=== PATIENT | female | born 1955 | race Caucasian/White ===

== ENCOUNTER 2024-12-31 10:28 | Emergency (ER) | payer MEDICARE, SELFPAY ==
--- OUTSIDE RECORDS SUMMARY | 2021-04-26 08:45 | XMS_ITS | Continuity of Care Document ---
Author Organization [facility] Address [address] [place] [address] Phone Care Team Providers Care Claims Support Specialist Name Role Phone Harjit ARIZA, Steffen Unavailable Unavailable Allergies, Adverse Reactions, Alerts Substance Reaction Status Criticality No Known Allergies Active No Inform ation Medications Medication Instructions Dosage Effective Dates (start - stop) Status Comments TRAMADOL 50MG TABLETS TAKE 1 TABLET BY MOUTH EVERY 6 HOURS NEEDED FOR PAIN - Active Lyrica 25 mg capsule - Active Prilosec 2.5 mg oral suspension,delay ed release - Active Ambien CR 12.5 mg tablet,extended release - Active VOLTAREN-XR (unknown strength) Not Available - Active Paxil 20 mg tablet - Active [place] 5 mg-325 mg tablet take 1 - 2 by oral route every 4 - 6 hours as needed for pain 1-2 - No Longer Active surgery 04/19/21@[facility] Procedures Procedure Date Global/Postop followup visit Kenalog Triamcinolone acetonide inj Asp/inject major joint or bursa w/o US g uidance Office/outpatient visit,est, mod 2021 Office/outpatient visit,est, mod 2021 MRI lower extrm joint, w/o contrast X-ray exam both knees, standing 022 X-ray exam knee, 1 or 2 views 2 Office/outpatient visit,est, mod 2021 Knee Hinged [facility] Breg X-ray exam shoulder minimum 2 views [place] Arm Sling Global/Postop followup visit X-ray exam shoulder minimum 2 views Office/outpatient visit,est, mod 2019 X-ray exam shoulder minimum 2 views Office/outpatient visit,est, mod 2019 Global/Postop followup visit Global/Postop followup visit [place] Arm Sling Global/Postop followup visit Office/outpatient visit,est, mod 2018 MRI Upper extr joint, w/o contrast Office/outpatient visit,est, mod 2018 X-ray exam shoulder minimum 2 views Office/outpatient visit,est, low 2018 Fluoroscopic Guidance; Non Spinal Office/outpatient visit,est, mod 2018 X-ray exam elbow, 3+ views Office/outpatient visit,est, low 2018 Global/Postop followup visit Global/Postop followup visit X-ray exam shoulder minimum 2 views X-ray exam shoulder minimum 2 views Global/Postop followup visit Catalino Sling With Waist Strap, Off The She lf Office/outpatient visit,est, low 2018 X-ray exam shoulder minimum 2 views Global/Postop followup visit Global/Postop followup visit X-ray exam shoulder minimum 2 views Global/Postop followup visit X-ray exam humerus, minimum 2 views Global/Postop followup visit X-ray exam humerus, minimum 2 views Global/Postop followup visit X-ray exam shoulder minimum 2 views Office/outpatient visit,est, low 2018 X-ray exam shoulder minimum 2 views Office/outpatient visit,est, mod 2018 X-ray exam ankle, minimum 3 views X-ray exam shoulder minimum 2 views Ankle Stirrip - Breg Office/outpatient visit,est, mod 2018 X-ray exam shoulder minimum 2 views X-ray exam ankle, minimum 3 views Office/outpatient visit,est, mod 2017 X-ray exam shoulder minimum 2 views [place] Sling With Waist Strap, Off The She lf Office/outpatient visit,new, mod 2017 Office/outpatient visit,est, low 2017 X-ray exam ankle, minimum 3 views Office/outpatient visit,est, mod 2017 [facility] Hinged Knee Sleeve Breg X-ray exam wrist, complete, 3+ views Aug Office/outpatient visit,est, mod 2017 X-ray exam wrist, complete, 3+ views Aug Office/outpatient visit,est, mod 2017 X-ray exam wrist, complete, 3+ views Jul Office/outpatient visit,est, mod 2017 X-ray exam hand, 2 views Upper ext fx orthosis wrist Thumb Spiica Office/outpatient visit,new, mod 2017 Advance Directives Directive Yes / No Effective Date File Name No Information Encounters Encounter Description Practice Location Reason(s) For Visit Diagnoses Date Provider Providers Copied on Encounter [facility], [address], [id number], [place] tel:[phone] [facility] Left knee (chief complaint) Oth meniscus derang, post horn of medial meniscus, l knee 2 Harjit Bourne. [address] [facility], [address], [place], [place], [id number], [place]. tel:[phone] Referring Provider: Steffen Kuo, [address] [address], [place], [address] . tel:[phone] [facility], [address] [address], [place], [place], [id number], [place] tel:[phone] [facility] No Information 2 Harjitsuzanne Bourne. [address] [address], [place], [place], [id number], [place]. tel:[phone] [facility], [address] [address], [place], [place], [address], [place] tel:[phone] [facility] No Information 2 Ricardo Yadav. [address], [id number], [place]. tel:[phone] Office/outpa tient visit,[facility], [address] [place] [address], [id number], [place] tel:[phone] [facility] left knee (chief complaint) Nondisplaced fracture of lateral condyle of left tibia, subsequent encounter for closed fracture w/ routine healingOth meniscus derang, post horn of medial meniscus, l kneeOth enthesopathies of unspecified lower limb, excluding foot 2 Ricardo Yadav. [address] [place] [address], [id number], [place]. tel:[phone] Office/outpa tient visit,est, [facility], [address], [id number], [place] tel:[phone] [facility] left knee (chief complaint) Pain in left kneeOth meniscus derang, post horn of medial meniscus, l kneeNondisplaced fracture of lateral condyle of left tibia, initial encounter for closed fracture 2 Ricardo Yadav. [address], [id number], [place]. tel:[phone] [facility], [address], [place], [address], [place] tel:[phone] [facility] Pain in left knee 2 [facility]. [address] [facility], [address], [place], [place], [id number], [place]. tel:[phone] Referring Provider: Steffen Kuo, [address] [facility] [address], [place], [address] . tel:[phone] Office/outpa tient visit,est, [facility], [address] [facility] [address], [place], [place], [id number], [place] tel:[phone] [facility] left knee pain (chief complaint) Pain in left knee 2 Ricardo Yadav. [address] [facility], [facility] [address], [place], [place], [id number], [place]. tel:[phone] Referring Provider: Steffen Kuo, [address] [facility] [address], [place], [address] . tel:[phone] [facility], [address] [address], [place], [place], [id number], [place] tel:[phone] [facility] Right shoulder (chief complaint) Presence of right artificial shoulder joint 0 Harjit Bourne. [address] [facility], [address], [place], [place], [id number], [place]. tel:[phone] Office/outpa tient visit,est, [facility], [address] [facility] [address], [place], [place], [address], [place] tel:[phone] [facility] Right shoulder (chief complaint) Presence of right artificial shoulder joint 0 Harjit Bourne. [address] [facility], [address], [place], [place], [id number], [place]. tel:[phone] Office/outpa tient visit,est, [facility], [address], [id number], [place] tel:[phone] [facility] right shoulder (chief complaint) Fracture of shaft of humerus of right arm, subsequent encounter for fracture w/ nonunionUnsp fx shaft of humer, right arm, subs for fx w routn healPresence of right artificial shoulder joint May-0 0 Harjit Bourne. [address] [facility], [address] [address], [place], [place], [id number], [place]. tel:[phone] [facility], [address] [address], [place], [place], [id number], [place] tel:[phone] [facility] elbow (chief complaint) Unsp fx shaft of humer, right arm, subs for fx w routn heal Apr- 0- 0 Azalea Tamayo. [address] [facility], [address], [id number], [place]. tel:[phone] [facility], [address], [id number], [place] tel:[phone] [facility] Lateral epicondylitis, right elbow 0 Azalea Tamayo. [address], [id number], [place]. tel:[phone] [facility], [address], [id number], [place] tel:[phone] [facility] Loose body in right elbow 0 Azalea Tamayo. [address] [facility], [address] [address], [place], [place], [address], [place]. tel:[phone] [facility], [address], [id number], [place] tel:[phone] [facility] RIGHT ELBOW (chief complaint) Lateral epicondylitis, right elbow 0 Azalea Tamayo. [address] [facility], [address], [id number], [place]. tel:[phone] Office/outpa tient visit,est, mod [facility], [address] [facility] [address], [place], [place], [id number], [place] tel:[phone] [facility] right elbow (chief complaint) Other sprain of left elbow, initial encounterLoose body in right elbowFracture of scaphoid bone of right wrist, initial encounter for closed fracture 9 Azalea Tamayo. [address] [facility], [address], [place], [place], [address], [place]. tel:[phone] [facility], [address] [facility] [address], [place], [place], [address], [place] tel:[phone] [facility] Pain in right elbow Jan-0 9 [facility]. [address] [facility], [address], [place], [place], [address], [place]. tel:[phone] Referring Provider: Roni Roldan, [address] [facility] [address], [place], [address] . tel:[phone] Office/outpa tient visit,est, [facility], [address] [facility] [address], [place], [place], [id number], [place] tel:[phone] [facility] Pain in right elbow Jan-0 9 Azalea Tamayo. [address] [facility], [address], [place], [place], [address], [place]. tel:[phone] Office/outpa tient visit,est, [facility], [address] [facility] [address], [place], [place], [address], [place] tel:[phone] [facility] Right shoulder (chief complaint) Fracture of shaft of humerus of right arm, subsequent encounter for fracture w/ nonunion 9 Harjit Bourne. [address] [facility], [address], [place], [place], [address], [place]. tel:[phone] Office/outpa tient visit,est, [facility], [address] [facility] [address], [place], [place], [address], [place] tel:[phone] [facility] Pain in right elbowOther sprain of left elbow, initial encounter 9 Tristan Roni. [address] [facility], [address] [address], [place], [place], [address], [place]. tel:[phone] Office/outpa tient visit,est, low [facility], [address] [address], [place], [place], [id number], [place] tel:[phone] [facility] right elbow pain (chief complaint) Pain in right elbow 9 Ricardo Yadav. [address] [address], [place], [place], [id number], [place]. tel:[phone] [facility], [address] [address], [place], [place], [address], [place] tel:[phone] [facility] Right shoulder (chief complaint) Unsp fx shaft of humer, right arm, subs for fx w routn heal 9 Harjittha Bourne. [address] [facility], [address] [address], [place], [place], [address], [place]. tel:[phone] [facility], [address] [address], [place], [place], [address], [place] tel:[phone] [facility] Right shoulder (chief complaint) Fracture of shaft of humerus of right arm, subsequent encounter for fracture w/ nonunion 9 Harjit Bourne. [address] [facility], [address] [address], [place], [place], [address], [place]. tel:[phone] [facility], [address] [address], [place], [place], [id number], [place] tel:[phone] [facility] Right shoulder (chief complaint) Fracture of shaft of humerus of right arm, subsequent encounter for fracture w/ nonunion 9 Harjit Bourne. [address] [facility], [address] [address], [place], [place], [address], [place]. tel:[phone] [facility], [address] [address], [place], [place], [address], [place] tel:[phone] [facility] Fracture of shaft of humerus of right arm, subsequent encounter for fracture w/ nonunion 9 Viktor Harp. [address] [facility], [address] [address], [place], [place], [address], [place]. tel:[phone] [facility], [address] [address], [place], [place], [address], [place] tel:[phone] [facility] Fracture of shaft of humerus of right arm, subsequent encounter for fracture w/ nonunion 9 Harjit Bourne. [address] [facility], [address] [address], [place], [place], [address], [place]. tel:[phone] Office/outpa tient visit,est, low [facility], [address] [address], [place], [place], [address], [place] tel:[phone] [facility] right shoulder (chief complaint) Unsp fx shaft of humer, right arm, subs for fx w routn heal 9 Harjit Bourne. [address] [facility], [address] [address], [place], [place], [address], [place]. tel:[phone] [facility], [address] [address], [place], [place], [address], [place] tel:[phone] [facility] right shoulder (chief complaint) Fracture of shaft of humerus of right arm, subsequent encounter for fracture w/ routine healing 9 Ricardo Yadav. [address] [facility], [address] [address], [place], [place], [address], [place]. tel:[phone] [facility], [address], [id number], [place] tel:[phone] [facility] right shoulder (chief complaint) Fracture of shaft of humerus of right arm, subsequent encounter for fracture w/ routine healing May-0 8- 9 Harjit Bourne. [address] [facility], [address] [address], [place], [place], [address], [place]. tel:[phone] [facility], [address] [address], [place], [place], [address], [place] tel:[phone] [facility] right shoulder (chief complaint) Fracture of shaft of humerus of right arm, subsequent encounter for fracture w/ routine healing May-2 4-201 9 Ricardo Yadav. [address] [facility], [facility] [address], [place], [place], [address], [place]. tel:[phone] [facility], [address], [id number], [place] tel:[phone] [facility] Right Shoulder (chief complaint) Fracture of shaft of humerus of right arm, subsequent encounter for fracture w/ routine healing May-1 0- 9 Harjit Bourne. [address] [facility], [address] [address], [place], [place], [address], [place]. tel:[phone] [facility], [address] [address], [place], [place], [address], [place] tel:[phone] [facility] Right humerus (chief complaint) Fracture of shaft of humerus of right arm, subsequent encounter for fracture w/ routine healing Apr-2 0- 9 Harjit Bourne. [address] [facility], [address] [address], [place], [place], [address], [place]. tel:[phone] Office/outpa tient visit,est, low [facility], [address] [address], [place], [place], [address], [place] tel:[phone] [facility] Right Shoulder (chief complaint) Fracture of shaft of humerus of right arm, subsequent encounter for fracture w/ routine healingFracture of shaft of humerus of right arm, subsequent encounter for fracture w/ nonunion Apr-0 6-201 9 Harjit Bourne. [address] [facility], [address] [address], [place], [place], [address], [place]. tel:[phone] [facility], [address], [id number], [place] tel:[phone] [facility] Right humerus (chief complaint) Right ankle (chief complaint) Sprain of internal collateral ligament of right ankle, subsequent encounterFractur e of shaft of humerus of right arm, subsequent encounter for fracture w/ routine healing 9 Harjit Bourne. [address] [place] [address], [id number], [place]. tel:[phone] Office/outpa tient visit,est, [facility], [address], [id number], [place] tel:[phone] [facility] right shoulder (chief complaint) Fracture of shaft of humerus of right arm, subsequent encounter for fracture w/ routine healing 9 Ricardo Yadav. [address] [place] [address], [id number], [place]. tel:[phone] Office/outpa tient visit,est, [facility], [facility] [address], [id number], [place] tel:[phone] [facility] Right Humerus (chief complaint) Right Ankle (chief complaint) Fracture of shaft of humerus of right arm, subsequent encounter for fracture w/ routine healingSprain of internal collateral ligament of right ankle, subsequent encounterNondisp fx of lateral malleolus of l fibula, 7thD 9 Harjit Bourne. [address] [facility], [facility] [address], [place], [address], [place]. tel:[phone] Office/outpa tient visit,est, [facility], [address] [place] [address], [id number], [place] tel:[phone] [facility] Right humerus (chief complaint) Right ankle (chief complaint) Fracture of shaft of humerus of right arm, subsequent encounter for fracture w/ routine healingSprain of internal collateral ligament of right ankle, subsequent encounter 8 Harjit Bourne. [address] [facility], [address], [place], [place], [address], [place]. tel:[phone] Office/outpa tient visit,[facility], [facility], [address] [facility] [address], [place], [place], [address], [place] tel:[phone] [facility] Right Humerus (chief complaint) Pain in right shoulderFracture of shaft of humerus of right arm, initial encounter for open fractureNondisp fx of lateral malleolus of l fibula, 7thD 8 Harjit Bourne. [address] [facility], [address] [address], [place], [place], [address], [place]. tel:[phone] Office/outpa tient visit,[facility], [facility], [address], [id number], [place] tel:[phone] [facility] left ankle (chief complaint) Sprain of other ligament of left ankle, subsequent encounter 8 Ricardo Yadav. [address] [facility], [address], [place], [place], [address], [place]. tel:[phone] Office/outpa tient visit,[facility], [facility], [address] [address], [place], [place], [address], [place] tel:[phone] [facility] left ankle pain (chief complaint) Pain in left ankle and joints of left footSprain of other ligament of left ankle, initial encounter 8 Ricardo Yadav. [address] [facility], [address], [place], [place], [address], [place]. tel:[phone] Office/outpa tient visit,[facility], [address], [id number], [place] tel:[phone] [facility] right wrist (chief complaint) Fracture of navicular bone of right wrist, subsequent encounter for fracture w/ routine healing 8 Ricardo Yadav. [address] [facility], [facility] 100, [place], [place], [address], [place]. tel:[phone] Office/outpa tient visit,[facility], [facility], [address] [facility] [address], [place], [place], [address], [place] tel:[phone] [facility] right wrist (chief complaint) Fracture of navicular bone of right wrist, subsequent encounter for fracture w/ routine healing Ricardo Yadav. [address] [facility], [facility] 100, [place], [place], [address], [place]. tel:[phone] Office/outpa tient visit,[facility], [facility], [address] [facility] [address], [place], [place], [address], [place] tel:[phone] [facility] right wrist (chief complaint) Fracture of navicular bone of right wrist, subsequent encounter for fracture w/ routine healing 8 Ricardo Yadav. [address] [facility], [facility] 100, [place], [place], [address], [place]. tel:[phone] Office/outpa tient visit,[facility], [address] [facility] [address], [place], [place], [address], [place] tel:[phone] [facility] right wrist pain (chief complaint) Pain in right handFracture of scaphoid bone of right wrist, initial encounter for closed fracture Ricardo Yadav. [address] [facility], [facility] 100, [place], [place], [address], [place]. tel:[phone] Family History Family Member Type Diagnosis Age At Onset Mother Problem (finding) Stroke Sister Problem (finding) Heart Disease Mother Problem (finding) Osteoarthritis Mother Problem (finding) Heart Disease Father Problem (finding) Heart Disease Father Problem (finding) Diabetes Father Problem (finding) Hypertension Payers Payer name Insurance type Covered green party ID Geea joe(s) Mounika Lugo [id number] Social History Type Description Quantity Date Captured Comments Alcohol Use Details Unknown Caffeine Use Details Unknown Tobacco Use Status Current non-smoker Smoking Status Never smoker Non-Smoking Tobacco Use Details : No Details Available : No Details Available Sex Female Vital Signs Date / Time: Height Weight BMI Pulse Rate Blood Pressure Temperature Respiratory Rate Body Surface Area Head Circumference Head Circ. Percentile Wt./Rex. Percentile BMI percentile Pulse Ox Inhaled Ox 3:17 PM 67.00 in 63.957 kg (141.00 lbs) 22.0 8 kg/m eter (2) Chief Complaint And Reason For Visit From encounter dated '04/26/2021 14:45'. Left knee (chief complaint). Description: Patient comes in today for follow up of her left knee arthroscopy Reason For Referral Reason For Referral No Information Plan Of Treatment Date Type Action Status Referral Ordered: X-ray exam both knees, standing ordered Referral Ordered: MRI lower extrm joint, w/o contrast LT knee Appointment date/timeframe: 03/14/2021 ordered Referral Ordered: X-ray exam knee, 1 or 2 views LT knee ordered Referral Referred To: Oracio Cortez MD [id number] [facility]
[address] [place], [place], [id number] Ordered: Referrals: Orthopedic Surgery. Oracio Cortez MD. Evaluate and treat Appointment date/timeframe: 11/04/2019 ordered Referral Ordered: MRI Upper extr joint, w/o contrast RT elbow Appointment date/timeframe: 01/30/2019 ordered Referral Ordered: X-ray exam elbow, 3+ views RT ordered Referral Ordered: CT scan Upper Extrem W/o Contrast RT shoulder Appointment date/timeframe: 08/06/2018 ordered Referral Ordered: X-ray exam humerus, minimum 2 views RT ordered Referral Ordered: X-ray exam ankle, minimum 3 views RT ankle ordered Referral Ordered: X-ray exam shoulder minimum 2 views RT ordered Referral Ordered: X-ray exam ankle, minimum 3 views RT ordered Referral Ordered: X-ray exam shoulder minimum 2 views RT shoulder ordered Referral Ordered: X-ray exam ankle, minimum 3 views LT ordered Referral Ordered: CT scan Upper Extrem W/o Contrast RT wrist Appointment date/timeframe: 09/13/2017 ordered Referral Ordered: X-ray exam wrist, complete, 3+ views RT wrist ordered Referral Ordered: X-ray exam wrist, complete, 3+ views RT ordered Referral Ordered: X-ray exam hand, 2 views RT ordered History Of Present Illness Encounter Date Complaint History Of Prese nt Illness Left knee Patient comes in today for follow up of her left knee arthroscopy left knee Ally returns to the office today for follow up of the left knee pain related to nondisplaced/incomplete subchondral fracture of the lateral tibial plateau with marked edema and horizontal undersurface tear of the body and posterior horn of the left medial meniscus. She reports improvement in lateral knee pain. However, last week she turned while on the stairs and felt a pop with increased pain in the medial knee and yanez. Her significant other indicates that she has been limited to a recliner due to the knee pain. left knee Ally returns fo r results of the MRI left knee at [facility] on 03/15/2021 which shows nondisplaced/incomplete subchondral fracture of the lateral tibial plateau with marked edema and horizontal undersurface tear of the body and posterior horn of the left medial meniscus. She is wearing a brace but cont to have difficulty with straightening the knee and walking. Pain is both medial and lateral. left knee pain Ms Carmen is a 65 year old female who complains of left knee pain. She presents with pain and decreased range of motion on the left side. She states that the symptoms have been acute traumatic and began on 03/06/2021. Ally states that the symptoms began as the result of twisting. She attempted to push a bed with her leg and she felt a pop as the knee twisted. The symptoms occur constantly. The problem is unchanged. Currently the patient states that the symptoms are severe. The pain is described as sharp, throbbing, dull and aching. The patient is experiencing pain in the following location: lower leg on the left side. She also reports additional pain in the medial aspect on the left side. She rates her worst pain as 8/10. The symptoms are aggravated by ascending stairs, descending stairs, standing and walking. Ally states that the symptoms are relieved by OTC medicines and rest. In addition to left knee pain the patient is also experiencing difficulty going to sleep, instability, limping, night pain, decreased mobility and giving way. Prior NSAIDs include Voltaren. She has had no previous treatment. Patient has not had any pertinent therapy for this condition. Patient has had no prior surgeries. She experienced previous injury. She has a history of lateral tibial plateau fracture in 2015 treated conservatively. Right shoulder Patient comes in today for follow up of her right shoulder Right shoulder Patient comes in today for follow up of her right shoulder right shoulder Ally returns to the office today for her right shoulder. elbow RIGHT ELBOW SUTURE REMOVAL right elbow test results Right shoulder Patient comes in today for follow up of her right shoulder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
--- OUTSIDE RECORDS SUMMARY | 2021-04-26 08:45 | XMS_ITS | Continuity of Care Document ---
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 Name Role Phone Harjit ARIAZ, Steffen Unavailable Unavailable Allergies, Adverse Reactions, Alerts [...] Active Paxil 20 mg tablet - Active [place] 5 mg-325 mg tablet take 1 - 2 by oral route every 4 - 6 hours as needed for pain 1-2 - No Longer Active surgery 04/19/21@[facility] Procedures Procedure Date Global/Postop followup visit Kenalog Triamcinolone acetonide inj Asp/inject major joint or bursa w/o US g uidance Office/outpatient visit,est, mod 2021 Office/outpatient visit,est, mod 2021 MRI lower extrm joint, w/o contrast X-ray exam both knees, standing 022 X-ray exam knee, 1 or 2 views 2 Office/outpatient visit,est, mod 2021 Knee Hinged [facility] Breg X-ray exam shoulder minimum 2 views [place] Arm Sling Global/Postop followup visit X-ray exam shoulder minimum 2 views Office/outpatient visit,est, mod 2019 X-ray exam shoulder minimum 2 views Office/outpatient visit,est, mod 2019 Global/Postop followup visit Global/Postop followup visit [place] Arm Sling Global/Postop followup visit Office/outpatient visit,est, [...] Copied on Encounter [facility], [address], [id number], [place] tel:[phone] [facility] Left knee (chief complaint) Oth meniscus derang, post horn of medial meniscus, l knee 2 Harjit Bourne. [address] [facility], [address], [place], [place], [address], [place]. tel:[phone] Referring Provider: Steffen Kuo, [address] [address], [place], [address] . tel:[phone] [facility], [address] [address], [place], [place], [address], [place] tel:[phone] [facility] No Information 2 Harjitsuzanne Bourne. [address] [address], [place], [place], [address], [place]. tel:[phone] [facility], [address] [address], [place], [place], [address], [place] tel:[phone] [facility] No Information 2 Ricardo Yadav. [address], [id number], [place]. tel:[phone] Office/outpa tient visit,[facility], [facility], [address] [place] [address], [id number], [place] tel:[phone] [facility] left knee (chief complaint) Nondisplaced fracture of lateral condyle of left tibia, subsequent encounter for closed fracture w/ routine healingOth meniscus derang, post horn of medial meniscus, l kneeOth enthesopathies of unspecified lower limb, excluding foot 2 Ricardo Yadav. [address] [place] [address], [id number], [place]. tel:[phone] Office/outpa tient visit,est, [facility], [address], [id number], [place] tel:[phone] [facility] left knee (chief complaint) Pain in left kneeOth meniscus derang, post horn of medial meniscus, l kneeNondisplaced fracture of lateral condyle of left tibia, initial encounter for closed fracture 2 Ricardo Yadav. [address], [id number], [place]. tel:[phone] [facility], [address], [place], [address], [place] tel:[phone] [facility] Pain in left knee 2 [facility]. [address] [facility], [address], [place], [place], [address], [place]. tel:[phone] Referring Provider: Steffen Kuo, [address] [facility] [address], [place], [address] . tel:[phone] Office/outpa tient visit,est, [facility], [address] [facility] [address], [place], [place], [address], [place] tel:[phone] [facility] left knee pain (chief complaint) Pain in left knee 2 Ricardo Yadav. [address] [facility], [facility], [place], [place], [address], [place]. tel:[phone] Referring Provider: Steffen Kuo, [address] [facility] [address], [place], [address] . tel:[phone] [facility], [address] [address], [place], [place], [address], [place] tel:[phone] [facility] Right shoulder (chief complaint) Presence of right artificial shoulder joint 0 Harjit Bourne. [address] [facility], [address], [place], [place], [address], [place]. tel:[phone] Office/outpa tient visit,est, [facility], [address] [facility] [address], [place], [place], [address], [place] tel:[phone] [facility] Right shoulder (chief complaint) Presence of right artificial shoulder joint 0 Harjit Bourne. [address] [facility], [address], [place], [place], [address], [place]. tel:[phone] Office/outpa tient visit,est, [facility], [address], [id number], [place] tel:[phone] [facility] right shoulder (chief complaint) Fracture of shaft of humerus of right arm, subsequent encounter for fracture w/ nonunionUnsp fx shaft of humer, right arm, subs for fx w routn healPresence of right artificial shoulder joint May-0 0 Harjit Bourne. [address] [facility], [address] [address], [place], [place], [id number], [place]. tel:[phone] [facility], [address] [address], [place], [place], [address], [place] tel:[phone] [facility] elbow (chief complaint) Unsp fx shaft of humer, right arm, subs for fx w routn heal Apr- 0- 0 Azalea Tamayo. [address] [facility], [address], [id number], [place]. tel:[phone] [facility], [address], [id number], [place] tel:[phone] [facility] Lateral epicondylitis, right elbow 0 Azalea Tamayo. [address], [id number], [place]. tel:[phone] [facility], [address], [id number], [place] tel:[phone] [facility] Loose body in right elbow 0 Azalea Tamayo. [address] [facility], [address] [address], [place], [place], [address], [place]. tel:[phone] [facility], [address], [id number], [place] tel:[phone] [facility] RIGHT ELBOW (chief complaint) Lateral epicondylitis, right elbow 0 Azalea Tamayo. [address] [facility], [address], [id number], [place]. tel:[phone] Office/outpa tient visit,est, mod [facility], [address] [facility] [address], [place], [place], [address], [place] tel:[phone] [facility] right elbow (chief complaint) Other sprain of left elbow, initial encounterLoose body in right elbowFracture of scaphoid bone of right wrist, initial encounter for closed fracture 9 Azalea Tamayo. [address] [facility], [address], [place], [place], [address], [place]. tel:[phone] [facility], [address] [facility] [address], [place], [place], [address], [place] tel:[phone] [facility] Pain in right elbow Jan-0 9 [facility]. [address] [facility], [address], [place], [place], [address], [place]. tel:[phone] Referring Provider: Roni Roldan, [address] [facility] [address], [place], [address] . tel:[phone] Office/outpa tient visit,est, [facility], [address] [facility] [address], [place], [place], [address], [place] tel:[phone] [facility] Pain in right elbow Jan-0 9 Azalea Tamayo. [address] [facility], [address], [place], [place], [address], [place]. tel:[phone] Office/outpa tient visit,est, [facility], [address] [facility] [address], [place], [place], [address], [place] tel:[phone] [facility] Right shoulder (chief complaint) Fracture of shaft of humerus of right arm, subsequent encounter for fracture w/ nonunion 9 Harjit Bourne. [address] [facility], [address], [place], [place], [address], [place]. tel:[phone] Office/outpa tient visit,est, [facility], [address] [facility] [address], [place], [place], [address], [place] tel:[phone] [facility] Pain in right elbowOther sprain of left elbow, initial encounter 9 Tristan Roni. [address] [facility], [address] [address], [place], [place], [address], [place]. tel:[phone] Office/outpa tient visit,est, low [facility], [address] [address], [place], [place], [address], [place] tel:[phone] [facility] right elbow pain (chief complaint) Pain in right elbow 9 Ricardo Yadav. [address] [address], [place], [place], [address], [place]. tel:[phone] [facility], [address] [address], [place], [place], [address], [place] tel:[phone] [facility] Right shoulder (chief complaint) Unsp fx shaft of humer, right arm, subs for fx w routn heal 9 Harjittha Bourne. [address] [facility], [address] [address], [place], [place], [address], [place]. tel:[phone] [facility], [address] [address], [place], [place], [address], [place] tel:[phone] [facility] Right shoulder (chief complaint) Fracture of shaft of humerus of right arm, subsequent encounter for fracture w/ nonunion 9 Harjit Bourne. [address] [facility], [address] [place] [address], [place], [place], [address], [place]. tel:[phone] [facility], [address] [address], [place], [place], [address], [place] tel:[phone] [facility] Right shoulder (chief complaint) Fracture of shaft of humerus of right arm, subsequent encounter for fracture w/ nonunion 9 Harjit Bourne. [address] [facility], [address] [address], [place], [place], [address], [place]. tel:[phone] [facility], [address] [address], [place], [place], [address], [place] tel:[phone] [facility] Fracture of shaft of humerus of right arm, subsequent encounter for fracture w/ nonunion 9 Viktor Harp. [address] [facility], [place] [place] [address], [place], [place], [address], [place]. tel:[phone] [facility], [address] [address], [place], [place], [address], [place] tel:[phone] [facility] Fracture of shaft of humerus of right arm, subsequent encounter for fracture w/ nonunion 9 Harjit Bourne. [address] [facility], [address] [address], [place], [place], [address], [place]. tel:[phone] Office/outpa tient visit,est, low [facility], [address] [address], [place], [place], [address], [place] tel:[phone] [facility] right shoulder (chief complaint) Unsp fx shaft of humer, right arm, subs for fx w routn heal 9 Harjit Bourne. [address] [facility], [address] [address], [place], [place], [address], [place]. tel:[phone] [facility], [address] [address], [place], [place], [address], [place] tel:[phone] [facility] right shoulder (chief complaint) Fracture of shaft of humerus of right arm, subsequent encounter for fracture w/ routine healing 9 Ricardo Yadav. [address] [facility], [address] [address], [place], [place], [address], [place]. tel:[phone] [facility], [address], [id number], [place] tel:[phone] [facility] right shoulder (chief complaint) Fracture of shaft of humerus of right arm, subsequent encounter for fracture w/ routine healing May-0 8- 9 Harjit Bourne. [address] [facility], [address] [place] [address], [place], [place], [address], [place]. tel:[phone] [facility], [address] [address], [place], [place], [address], [place] tel:[phone] [facility] right shoulder (chief complaint) Fracture of shaft of humerus of right arm, subsequent encounter for fracture w/ routine healing May-2 4-201 9 Ricardo Yadav. [address] [facility], [facility] [address], [place], [place], [address], [place]. tel:[phone] [facility], [address], [id number], [place] tel:[phone] [facility] Right Shoulder (chief complaint) Fracture of shaft of humerus of right arm, subsequent encounter for fracture w/ routine healing May-1 0- 9 Harjit Bourne. [address] [facility], [address] [place] [address], [place], [place], [address], [place]. tel:[phone] [facility], [address] [address], [place], [place], [address], [place] tel:[phone] [facility] Right humerus (chief complaint) Fracture of shaft of humerus of right arm, subsequent encounter for fracture w/ routine healing Apr-2 0- 9 Harjit Bourne. [address] [facility], [address] [address], [place], [place], [address], [place]. tel:[phone] Office/outpa tient visit,est, low [facility], [address] [address], [place], [place], [address], [place] tel:[phone] [facility] Right Shoulder (chief complaint) Fracture of shaft of humerus of right arm, subsequent encounter for fracture w/ routine healingFracture of shaft of humerus of right arm, subsequent encounter for fracture w/ nonunion Apr-0 6-201 9 Harjit Bourne. [address] [facility], [place] [place] [address], [place], [place], [address], [place]. tel:[phone] [facility], [address], [id number], [place] tel:[phone] [facility] Right humerus (chief complaint) Right ankle (chief complaint) Sprain of internal collateral ligament of right ankle, subsequent encounterFractur e of shaft of humerus of right arm, subsequent encounter for fracture w/ routine healing 9 Harjit Bourne. [address] [place] [address], [id number], [place]. tel:[phone] Office/outpa tient visit,est, [facility], [address], [id number], [place] tel:[phone] [facility] right shoulder (chief complaint) Fracture of shaft of humerus of right arm, subsequent encounter for fracture w/ routine healing 9 Ricardo Yadav. [address] [place] [address], [id number], [place]. tel:[phone] Office/outpa tient visit,est, [facility], [facility] [address], [id number], [place] tel:[phone] [facility] Right Humerus (chief complaint) Right Ankle (chief complaint) Fracture of shaft of humerus of right arm, subsequent encounter for fracture w/ routine healingSprain of internal collateral ligament of right ankle, subsequent encounterNondisp fx of lateral malleolus of l fibula, 7thD 9 Harjit Bourne. [address] [facility], [facility] [address], [place], [address], [place]. tel:[phone] Office/outpa tient visit,est, [facility], [address] [place] [address], [id number], [place] tel:[phone] [facility] Right humerus (chief complaint) Right ankle (chief complaint) Fracture of shaft of humerus of right arm, subsequent encounter for fracture w/ routine healingSprain of internal collateral ligament of right ankle, subsequent encounter 8 Harjit Bourne. [address] [facility], [address], [place], [place], [address], [place]. tel:[phone] Office/outpa tient visit,[facility], [facility], [address] [facility] [address], [place], [place], [address], [place] tel:[phone] [facility] Right Humerus (chief complaint) Pain in right shoulderFracture of shaft of humerus of right arm, initial encounter for open fractureNondisp fx of lateral malleolus of l fibula, 7thD 8 Harjit Bourne. [address] [facility], [address] [address], [place], [place], [address], [place]. tel:[phone] Office/outpa tient visit,[facility], [facility], [address], [id number], [place] tel:[phone] [facility] left ankle (chief complaint) Sprain of other ligament of left ankle, subsequent encounter 8 Ricardo Yadav. [address] [facility], [address], [place], [place], [address], [place]. tel:[phone] Office/outpa tient visit,[facility], [facility], [address] [address], [place], [place], [address], [place] tel:[phone] [facility] left ankle pain (chief complaint) Pain in left ankle and joints of left footSprain of other ligament of left ankle, initial encounter 8 Ricardo Yadav. [address] [facility], [address], [place], [place], [address], [place]. tel:[phone] Office/outpa tient visit,[facility], [address], [id number], [place] tel:[phone] [facility] right wrist (chief complaint) Fracture of navicular bone of right wrist, subsequent encounter for fracture w/ routine healing 8 Ricardo Yadav. [address] [facility], [facility], [place], [place], [address], [place]. tel:[phone] Office/outpa tient visit,[facility], [facility], [address] [facility] [address], [place], [place], [address], [place] tel:[phone] [facility] right wrist (chief complaint) Fracture of navicular bone of right wrist, subsequent encounter for fracture w/ routine healing Ricardo Yadav. [address] [facility], [facility] [address], [place], [place], [address], [place]. tel:[phone] Office/outpa tient visit,[facility], [facility], [address] [facility] [address], [place], [place], [address], [place] tel:[phone] [facility] right wrist (chief complaint) Fracture of navicular bone of right wrist, subsequent encounter for fracture w/ routine healing 8 Ricardo Yadav. [address] [facility], [facility] [address], [place], [place], [address], [place]. tel:[phone] Office/outpa tient visit,[facility], [address] [facility] [address], [place], [place], [address], [place] tel:[phone] [facility] right wrist pain (chief complaint) Pain in right handFracture of scaphoid bone of right wrist, initial encounter for closed fracture Ricardo Yadav. [address] [facility], [facility], [place], [place], [address], [place]. tel:[phone] Family History Family Member Type Diagnosis Age At Onset Mother Problem (finding) Stroke Sister Problem (finding) Heart Disease Mother Problem (finding) Osteoarthritis Mother Problem (finding) Heart Disease Father Problem (finding) Heart Disease Father Problem (finding) Diabetes Father Problem (finding) Hypertension Payers Payer name Insurance type Covered constitution party ID Geea joe(s) Mounika Lugo [id number] Social History Type Description Quantity Date Captured [...] Referral Referred To: Oracio Cortez MD [address] [facility]
[address] [place], [place], [id number] Ordered: Referrals: Orthopedic Surgery. Oracio Cortez MD. [...] results of the MRI left knee at [facility] on 03/15/2021 which shows nondisplaced/incomplete subchondral fracture [...] walking boot. She cancelled the trip to [place] due to ankle pain. She has not [...] 08/02/2017. She indicates the injury occurred in [place]. Ally states that the symptoms began as [...] symptoms are aggravated by dependency and movement. Ally states that the symptoms are relieved by prescription medicatons and pain medicine. In addition to right wrist pain the patient is also experiencing difficulty initiating sleep and burning. The patient has had a previous x-ray. She went to [facility] on 08/02/17 and right wrist xrays [...]
[2024-12-31] VITALS (26 sets, daily range): BP systolic 100–123; BP diastolic 47–63; PULSE 95–112; RESP 12–22; TEMP 36.6–38.6; O2SAT 93–100
--- NOTE | ~2024-12-31 | CT_ITS ---
Exam: CT chest, abdomen and pelvis with contrast Clinical History: [Lower abdominal pain. Fever. Low back pain. UTI/pyleo. ] Comparison: [ None available] Technique: Multiple axial CT images of the chest, abdomen and pelvis were obtained with IV contrast. Sagittal and coronal reformatted images were obtained. FINDINGS: Lungs bases: [ Tiny bilateral pleural effusions.] Small patchy opacities in the lower lungs. Liver: [[ No intrahepatic biliary duct dilatation.] Probable mild fatty infiltration in the liver about the falciform ligament. Gallbladder: Surgically absent. Common bile duct: Prominent presumably due to previous cholecystectomy. [ No stones.] Spleen: [ Within normal limits.] Pancreas: [ No mass. No pancreatic fluid collection.] Adrenals: [ No masses.] Kidneys: No hydronephrosis.][ The right kidney enhances heterogeneously possibly due to pyelonephritis. There is right perinephric fat stranding. Small amount of enhancement about the right renal pelvis and right ureter. No CT evidence for renal, ureteral or bladder calculi. Lymph nodes: [ No adenopathy in the abdomen or pelvis.] Stomach, small bowel and colon: [ No bowel wall thickening or obstruction.] Small hiatal hernia. Concentric thickening of the hurt of the distal esophagus. No CT evidence for acute appendicitis. Peritoneum cavity: Small amount of fluid in the pelvis. Bladder: Mild concentric thickening of the hurt of the bladder. Osseous structures: [ No acute fracture.[ Multilevel degenerative change in the visualized spine.] Abdominal aorta: [ No aneurysm.] Additional findings: [ None of significance.] IMPRESSION: 1. The right kidney enhances heterogeneously possibly due to pyelonephritis. There is right perinephric fat stranding. The findings are concerning for pyelonephritis. Recommend follow-up to resolution to exclude an underlying malignant process. 2. Small amount of enhancement about the right renal pelvis and right ureter. The findings concerning for an infectious process in the right ureter. 3. Mild concentric thickening of the hurt of the bladder. The findings are concerning for cystitis. 4. No CT evidence for renal, ureteral or bladder calculi. 5. Tiny bilateral pleural effusions. 6. Concentric thickening of the hurt of the distal esophagus. 7. Small hiatal hernia. 8. Small patchy opacities in the lower lungs. Reviewed, dictated and finalized at location Q. 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 The right kidney enhances heterogeneously possibly due to pyelonephritis. Th ere is right perinephric fat stranding. The findings are concerning for pyelone phritis. Recommend follow-up to resolution to exclude an underlying malignant p rocess. 2. Small amount of enhancement about the right renal pelvis and right ureter. T he findings concerning for an infectious process in the right ureter. 3. Mild concentric thickening of the hurt of the bladder. The findings are con cerning for cystitis. 4. No CT evidence for renal, ureteral or bladder calculi. 5. Tiny bilateral pleural effusions. 6. Concentric thickening of the hurt of the distal esophagus. 7. Small hiatal hernia. 8. Small patchy opacities in the lower lungs.
[2024-12-31 10:51] LABS: Hematocrit 31.1 % (37.0-47.0); Hemoglobin 10.3 g/dL (12.0-15.0); Immature Granulocyte Percent A 0.9 % (0-0.5); Lymphocytes Absolute Auto 0.36 K/mm3 (0.9-3.2); Mean Corpuscular HGB Conc 33.1 g/dl (32-36); Mean Corpuscular Hemoglobin 30.2 pg (26-34); Mean Corpuscular Volume 91.2 fl (80-100); Nucleated Red Blood Cells Absolute Auto 0.000 K/mm3 (0.0-0.012); Nucleated Red Blood Cells Perc 0.0 % (0.0-0.2); Platelet Count Result 146 k/mm3 (150-375); Red Blood Count 3.41 M/mm3 (4.2-5.4); White Blood Count 6.4 K/mm3 (4.5-10.0)
[2024-12-31 11:15] LABS: Alanine Aminotransferase 137 U/L (6-35); Albumin Level 3.3 g/dL (3.5-5.1); Alkaline Phosphatase 267 U/L (38-126); Anion Gap 6 mmol/L (4-12); Aspartate Amino Transferase 136 U/L (14-36); Bilirubin,Total 1.1 mg/dL (0.2-1.3); Blood Urea Nitrogen 23 mg/dL (7-17); Calcium 8.4 mg/dL (8.4-10.2); Carbon Dioxide 23 mmol/L (22-30); Chloride 105 mmol/L (98-107); Estimated CRCL calculation 46 ml/min; Estimated Glomerular Filt Rate 55; Glucose 105 mg/dL (65-110); Lipase 39 U/L (23-300); Potassium 3.6 mmol/L (3.4-5.0); Sodium 134 mmol/L (137-145); Total Protein 6.3 g/dL (6.3-8.2)
[2024-12-31 11:42] LABS: Add Urine Microscopic? YES; Appearance Urine Turbid (Clear); Glucose Urine UA Negative (Negative); Leukocyte Esterase Ur 2+ LEU/UL (Negative); Need Manual Microscopic Reviewed; Nitrate Urine Positive (Negative); Specific Grav Ur 1.022 (1.001-1.035)
[2024-12-31] MEDS: SODIUM CHLORIDE 0.9% IV 1,000 ML 999 ML IV CONT ×2 (12:08→13:52)
[2024-12-31 12:28] LABS: CRP 25.0 mg/dL (<1.0)
--- NOTE | 2024-12-31 13:11 | ED.ABDPAIN ---
HPI - Abdominal Pain General Chief Complaint: Abdominal Pain Stated Complaint: abd pain, fever Time Seen by Provider: 12/31/24 12:09 Source: patient Mode of arrival: ambulatory Limitations: no limitations History of Present Illness HPI narrative: Patient presents with report of low abdominal pain and fever as well as chills. She was also having low back pain in bilateral flanks as well as across the entire low back which started Saturday. She has a history of a urinary tract infection which became pyelonephritis once before and had been told at that time that she had been near urosepsis diagnosis; as such she required hospitalization for IV antibiotics at that time. She went to urgent care yesterday and was given fluids but she seemed to get worse overnight. She stated her fever was 104.5? F last night. She has been alternating Tylenol ibuprofen with her last dose of Tylenol taken at 9:00 a.m.. She also took Pepcid and Zofran yesterday which seemed to help. She has had decreased urination actually. No dysuria or hematuria. Last bowel movement was Saturday. Denies any diarrhea constipation or bloody stools. Denies any history of heart failures. Abdominal surgery includes a cholecystectomy as well as removal of fallopian tubes and ovaries. Related Data Allergies Allergy/AdvReac Type Severity Reaction Status Date / Time diphenhydramine (From AdvReac Jittery Verified 12/31/24 10:38 Benadryl) [facility] Past Medical History Medical History History of pyelonephritis History of UTI Surgical History Surgical History History of gynecologic surgery salpingectomy; oopharectomy History of cholecystectomy Social History Social History (Updated 01/01/25 @ 06:50 by Arabella Ronquillo MD) Living arrangements: with family Additional living arrangements comments: in [facility] Exam Narrative: GENERAL: well-nourished, and in no acute distress although appears acutely unwell. HEAD: Normocephalic, atraumatic. EYES: Non injected, non icteric ENT: Nares clear, no rhinorrhea or epistaxis. Gross auditory acuity intact. NECK: Supple. No meningismus. CHEST: Speaking in full sentences. No respiratory distress. HEART: Regular rate and rhythm. . ABDOMEN: Soft, nondistended. No rigidity or guarding. Not peritoneal. BACK: No midline TTP of spinous processes which are midline w/o bony step offs but generalized tenderness throughout and CVA tenderness bilaterally. EXTREMITIES: Normal range of motion. No lower extremity edema. SKIN: Warm, dry, no rash. NEURO: No focal deficits. Alert and oriented. Answering questions. Following commands. Normal speech without aphasia or dysarthria. PSYCH: Normal mood and affect. Course Vital Signs Vital signs: Vital Signs Temperature 101.4 F H 12/31/24 10:36 Pulse Rate 112 H 12/31/24 10:36 Respiratory Rate 22 H 12/31/24 10:36 Blood Pressure 123/61 12/31/24 10:36 Pulse Oximetry 96 12/31/24 10:36 Oxygen Delivery Room Air 12/31/24 10:36 Temperature 98 F 12/31/24 14:42 Pulse Rate 95 12/31/24 15:33 Respiratory Rate 20 12/31/24 15:33 Blood Pressure 100/53 L 12/31/24 15:33 Pulse Oximetry 95 12/31/24 15:33 Oxygen Delivery Room Air 12/31/24 10:36 MDM - Abdominal Pain MDM Narrative Medical decision making narrative: Patient presents with low abdominal pain as well as fever and chills. She is also having low back pain and flank pain. Symptoms started Saturday. In the emergency department she is febrile, tachypneic, and tachycardic. Because this combination is concerning for SIRS/sepsis, from triage blood culture lactic acid and CRP are ordered. Patient was initially given 1 L IV fluid. Will give Tylenol (last dose 0900). Urinalysis is concerning for infection. No previous urine culture for review. Ceftriaxone ordered as per sepsis ED bundle order set. 2nd L IV fluids is ordered and this will meet criteria for 30 cc/kg fluid bolus. She is without leukocytosis. She has a normocytic anemia with no prior for comparison. She also has a very mild thrombocytopenia with no prior for comparison. Transaminitis with no prior for comparison. No previous creatinine for comparison, only mildly above upper limit of normal though might represent a mild CURTIS if baseline is low enough. Lactic acid normal but CRP elevated. Questionable opacities in bilateral lower lobes. Given this, will add azithromycin to cover atypicals in addition to the ceftriaxone she already received. Fever has defervesced and patient's heart rate has normalized. CT as below. Discussed patient's work up with her at bedside. Discussed admission given the combination of questionable pneumonia as well as her pyelonephritis and her initial vital signs and history of previous pyelonephritis that bordered on urosepsis requiring hospitalization and IV antibiotics at that time given this places her at slightly increased risk. Despite this however, patient requests and would prefer discharge as she is currently taking care of her grandchildren while their parents are in [place]. She notes that she is able to rest and take care for her own health with this as her can help with these duties. She is strongly encouraged to return to the emergency department with any new or worsening or unmanaged symptoms and I encouraged that she return to this emergency department given we have record of her baseline labs and CT scan and urine culture though patient did note that she lives in [place]. Given this, will DC with Rx for a fluroquinolone to cover both respiratory and urinary pathology. Differential Diagnosis Differential diagnosis: Likely abdominal pain, acute appendicitis, calculus of kidney (including consideration of infected stone), constipation, diverticulitis, pancreatitis and other (UTI, pyelonephritis; intra-abdominal/pelvic abscess) Lab Data Attestation: I reviewed the patient's lab results. 12/31/24 10:47 12/31/24 10:47 Labs: Lab Results 12/31/24 12/31/24 12/31/24 Range/Units 10:47 11:26 11:41 WBC 6.4 (4.5-10.0) K/mm3 RBC 3.41 L (4.2-5.4) M/mm3 Hgb 10.3 L (12.0-15.0) g/dL Hct 31.1 L (37.0-47.0) % MCV 91.2 (80-100) fl MCH 30.2 (26-34) pg MCHC 33.1 (32-36) g/dl RDW 13.7 (11.5-14.5) % Plt Count 146 L (150-375) k/mm3 MPV 9.5 (7.4-10.4) fl Immature Gran % (Auto) 0.9 H (0-0.5) % Neut % (Auto) 89.6 H (45.5-73.1) % Lymph % (Auto) 5.6 L (18.3-44.2) % Schoolcraft % (Auto) 3.4 (2.6-8.5) % Eos % (Auto) 0.3 (0-4.4) % Baso % (Auto) 0.2 (0.2-1.2) % Lymph # (Auto) 0.36 L (0.9-3.2) K/mm3 Schoolcraft # (Auto) 0.2 (0.1-0.6) K/mm3 Eos # (Auto) 0.0 (0-0.3) K/mm3 Baso # (Auto) 0.0 (0.0-0.1) K/mm3 Abs Immat Gran (auto) 0.06 H (0.00-0.031) K/mm3 Absolute Neuts (auto) 5.7 (1.3-6.7) K/mm3 Absolute Nucleated RBC 0.000 (0.0-0.012) K/mm3 Nucleated RBC % 0.0 (0.0-0.2) % PT (11.1-14.7) Seconds INR APTT (22.3-36.8) Seconds Sodium 134 L (137-145) mmol/L Potassium 3.6 (3.4-5.0) mmol/L Chloride 105 (98-107) mmol/L Carbon Dioxide 23 (22-30) mmol/L Anion Gap 6 (4-12) mmol/L BUN 23 H (7-17) mg/dL Creatinine 1.01 H (0.7-1.0) mg/dL Estim Creat Clear Calc 46 ml/min Estimated GFR 55 L (59 - ) Glucose 105 (65-110) mg/dL Lactic Acid 1.0 (0.7-2.0) mmol/L Calcium 8.4 (8.4-10.2) mg/dL Total Bilirubin 1.1 (0.2-1.3) mg/dL AST 136 H (14-36) U/L ALT 137 H (6-35) U/L Alkaline Phosphatase 267 H (38-126) U/L C-Reactive Protein 25.0 H (<1.0) mg/dL Total Protein 6.3 (6.3-8.2) g/dL Albumin 3.3 L (3.5-5.1) g/dL Lipase 39 (23-300) U/L Urine Color Dark yellow (Yellow) Urine Appearance Turbid H (Clear) Urine pH 5.5 (5.0-9.0) Ur Specific Gardner 1.022 (1.001-1.035) Urine Protein 2+ H (Negative) mg/dL Urine Glucose (UA) Negative (Negative) mg/dL Urine Ketones 1+ H (Negative) mg/dL Ur Blood (Man) 2+ H (Negative) Urine Nitrate Positive H (Negative) Urine Bilirubin Negative (Negative) Urine Urobilinogen 1.0 (<2.0) mg/dL Add Ur Microanalysis Reviewed Leukocyte Esterase Rfl 2+ H (Negative) JANELLE/UL Urine RBC 0-2 (0-2) /hpf Urine WBC >100 H (0-3) /hpf Ur Squamous Epith Cells Occasional (Few) /hpf Urine Bacteria 4+ H /hpf Urine Casts 11-20 Granular Casts Present (None) /lpf Acetaminophen (10-30) ug/mL 12/31/24 Range/Units 13:55 WBC (4.5-10.0) K/mm3 RBC (4.2-5.4) M/mm3 Hgb (12.0-15.0) g/dL Hct (37.0-47.0) % MCV (80-100) fl MCH (26-34) pg MCHC (32-36) g/dl RDW (11.5-14.5) % Plt Count (150-375) k/mm3 MPV (7.4-10.4) fl Immature Gran % (Auto) (0-0.5) % Neut % (Auto) (45.5-73.1) % Lymph % (Auto) (18.3-44.2) % Schoolcraft % (Auto) (2.6-8.5) % Eos % (Auto) (0-4.4) % Baso % (Auto) (0.2-1.2) % Lymph # (Auto) (0.9-3.2) K/mm3 Schoolcraft # (Auto) (0.1-0.6) K/mm3 Eos # (Auto) (0-0.3) K/mm3 Baso # (Auto) (0.0-0.1) K/mm3 Abs Immat Gran (auto) (0.00-0.031) K/mm3 Absolute Neuts (auto) (1.3-6.7) K/mm3 Absolute Nucleated RBC (0.0-0.012) K/mm3 Nucleated RBC % (0.0-0.2) % PT 13.6 (11.1-14.7) Seconds INR 1.0 APTT 29.0 (22.3-36.8) Seconds Sodium (137-145) mmol/L Potassium (3.4-5.0) mmol/L Chloride (98-107) mmol/L Carbon Dioxide (22-30) mmol/L Anion Gap (4-12) mmol/L BUN (7-17) mg/dL Creatinine (0.7-1.0) mg/dL Estim Creat Clear Calc ml/min Estimated GFR (59 - ) Glucose (65-110) mg/dL Lactic Acid (0.7-2.0) mmol/L Calcium (8.4-10.2) mg/dL Total Bilirubin (0.2-1.3) mg/dL AST (14-36) U/L ALT (6-35) U/L Alkaline Phosphatase (38-126) U/L C-Reactive Protein (<1.0) mg/dL Total Protein (6.3-8.2) g/dL Albumin (3.5-5.1) g/dL Lipase (23-300) U/L Urine Color (Yellow) Urine Appearance (Clear) Urine pH (5.0-9.0) Ur Specific Gardner (1.001-1.035) Urine Protein (Negative) mg/dL Urine Glucose (UA) (Negative) mg/dL Urine Ketones (Negative) mg/dL Ur Blood (Man) (Negative) Urine Nitrate (Negative) Urine Bilirubin (Negative) Urine Urobilinogen (<2.0) mg/dL Add Ur Microanalysis Leukocyte Esterase Rfl (Negative) JANELLE/UL Urine RBC (0-2) /hpf Urine WBC (0-3) /hpf Ur Squamous Epith Cells (Few) /hpf Urine Bacteria /hpf Urine Casts Granular Casts (None) /lpf Acetaminophen < 10 L (10-30) ug/mL Imaging Data Radiologist's impression: ITS Impressions Abdomen/Pelvis CT 12/31/24 13:41 IMPRESSION: 1. The right kidney enhances heterogeneously possibly due to pyelonephritis. There is right perinephric fat stranding. The findings are concerning for pyelonephritis. Recommend follow-up to resolution to exclude an underlying malignant process. 2. Small amount of enhancement about the right renal pelvis and right ureter. The findings concerning for an infectious process in the right ureter. 3. Mild concentric thickening of the hurt of the bladder. The findings are concerning for cystitis. 4. No CT evidence for renal, ureteral or bladder calculi. 5. Tiny bilateral pleural effusions. 6. Concentric thickening of the hurt of the distal esophagus. 7. Small hiatal hernia. 8. Small patchy opacities in the lower lungs. Discharge Plan Discharge Clinical Impression: UTI (urinary tract infection), Normocytic anemia, Transaminitis, CRP elevated, Pyelonephritis, Bilateral pleural effusion, Hiatal hernia, Opacity of lung on imaging study Patient Disposition: Home Condition: Stable Instructions: Antibiotic Form, Urinary Tract Infection in Women (DC), Kidney Infection (ED), Community Acquired Pneumonia (DC), Transaminitis (ED) Additional Instructions: As we discussed, admission was offered but you would prefer to trial outpatient oral antibiotics. You were given a dose of ceftriaxone and azithromycin for the combination of urinary tract infection/pyelonephritis (kidney infection) and possible pneumonia while in the ED. For home, you are being given the antibiotic below. Take the entire course even if feeling better. Follow-up with your primary care physician for these issues as well as the fact that your liver enzymes were elevated with no prior for comparison. It is very important that you Return to the emergency department with any new worsening or unmanaged symptoms. Patient Language: Citizen Of [place] Prescriptions: New levofloxacin 500 mg tablet 500 mg PO DAILY 10 Days Qty: 10 0RF Follow-up/Referrals: Marcio,Long Hernandez MD [Primary Care Provider] Stand Alone Forms: Work/School Release IP Time of Disposition: 15:22
[2024-12-31] MEDS: ACETAMINOPHEN 500 MG TABLET 1000 MG PO (13:50)
[2024-12-31] MEDS: MORPHINE SULFATE (*CRX) 4 MG/ML INJ 2 MG IV PUSH (13:51)
[2024-12-31] MEDS: cefTRIAXone 1 GM in SODIUM CHLORIDE 0.9% IV 50 ML 100 ML IVPB (13:52)
[2024-12-31 14:20] LABS: Acetaminophen < 10 ug/mL (10-30)
[2024-12-31 14:24] LABS: INR 1.0; Prothrombin Time 13.6 Seconds (11.1-14.7)
[2024-12-31 14:25] LABS: Partial Thromboplastin Time 29.0 Seconds (22.3-36.8)
[2024-12-31] MEDS: AZITHROMYCIN 500 MG TABLET PO (14:37)
--- OUTSIDE RECORDS SUMMARY | 2024-12-31 18:40 | XMS_ITS | Encounter Summary ---
Author Organization [facility] Address [address] [place] [address] [place] [address] Care Team Providers Care Vascular Surgeon Name Role Phone Long Buckley MD Primary Care Provider Long Buckley MD Primary Care Provider Long Buckley MD Primary Care Provider Long Buckley MD Primary Care Provider Trenton Collado PT Unavailable Unavailab Long Cardenas PT Unavailable [phone] Suhail Musa MD Unavailable Teena Solo MD Unavailable [phone] Encounter Details Date Type Department Care Team (Late st Contact Info) Description 08/22/2010 Orders Only [facility] [address] [place] [address] Long Buckley MD [address] [place] [address] [address] [place] [address] Social History Tobacco Use Types Packs/Day Years Used Date Smoking Tobacco: Never Assessed Comments Unknown Sex and Gender Information Value Date Recorded Sex Assigned at Not on file 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 Gender Identity Not on file Sexual Orientation Not on file documented as of this encounter Plan of Treatment Not on file documented as of this encounter Procedures Procedure Name Priority Date/Time Associated Diagnosis Comments SCAN - RADIOLOGY/IMAGING Routine 08/22/2010 documented in this encounter Results * SCAN - RADIOLOGY/IMAGING (08/22/2010) Anatomical Region Laterality Modality Other us Noemy Canales MD Final Result documented in this encounter Visit Diagnoses Not on filedocumented in this encounter Care Teams Vascular Surgeon Relationship Specialty Start Date End Date Long Buckley MD PCP - General 05/25/16 Long Buckley MD PCP - General 04/19/16 05/24/16 Long Buckley MD PCP - General 09/18/11 04/18/16 Long Buckley MD PCP - General 08/08/06 09/17/11 Trenton Collado, PT Physical Therapist Physical Therapy 08/02/21 06/02/22 [place] [address] [place] [address] Physical Therapist Physical Therapy 06/03/22 02/12/23 Suhail Musa MD [address] [place] [address] Referring Physician Plastic Surgery 10/17/23 Teena Solo MD [address] [place] [address] Consulting Physician Obstetrics and Gynecology 04/23/24 documented as of this encounter
--- OUTSIDE RECORDS SUMMARY | 2024-12-31 18:40 | XMS_ITS | Clinical Summary ---
Author Organization [facility] Address [address] [place] [address] Phone Care Team Providers Care Wire Spooler Name Role Phone Long Buckley MD Primary Care Provider [phone] Medications diclofenac sodium (VOLTAREN ORAL) Take by mouth. Active PARoxetine HCl (PAXIL) 20 mg tablet Take 20 mg by mouth daily. Active zolpidem (AMBIEN CR) 12.5 mg Controlled Release tablet Take 12.5 mg by mouth nightly as needed for Insomnia. Active Social History Tobacco Use Types Packs/Day Years Used Date Smoking Tobacco: Never Assessed Smokeless Tobacco: Never Comments Unknown Sex and Gender Information Value Date Recorded Sex Assigned at Not on file Legal Sex Female 12:46 PM ICHTHYOLOGIST Gender Identity Not on file Sexual Orientation Not on file Last Filed Vital Signs Vital Sign Reading Time Taken Comments Blood Pressure 114/69 01/25/2018 3:00 PM ICHTHYOLOGIST Pulse 83 01/25/2018 3:00 PM ICHTHYOLOGIST Temperature - - Respiratory Rate 18 01/25/2018 12:53 PM ICHTHYOLOGIST Oxygen Saturation 91% 01/25/2018 3:00 PM ICHTHYOLOGIST Inhaled Oxygen Concentration - - Weight 63.5 kg (140 lb) 01/25/2018 12:53 PM ICHTHYOLOGIST Height 170.2 cm (5' 7) 01/25/2018 12:53 PM ICHTHYOLOGIST Body Mass Index 21.93 01/25/2018 12:53 PM ICHTHYOLOGIST Plan of Treatment Health Maintenance Due Date Last Done Comments DTAP/TDAP/TD VACCINES (1 - Tdap) 1976 BREAST CANCER SCREENING 1997 COLORECTAL SCREENING 2002 Colorectal Cancer Screening 2002 FIT-DNA Q 3 years 2002 FIT/FOBT Q 1 year 2002 Flex Sig/CT Colonography Q 5 years 2002 PNEUMOCOCCAL VACCINE 50+ YEA RS (1 of 1 - PCV) 11/15/2007 ZOSTER VACCINE (1 of 2) 11/15/2007 OSTEOPOROSIS SCREENING 2022 INFLUENZA VACCINE (#1) 2024 8, 11/30/2015, 11/26/2015 RSV VACCINE (60+ or ) (1 - 1-dose 75+ series) 2032 Insurance [employer] CHOICE POS II Care Teams Wire Spooler Relationship Specialty Start Date End Date Long Buckley MD [address] [place] [id number] PCP - General Internal Medicine 01/25/18
--- OUTSIDE RECORDS SUMMARY | 2024-12-31 18:40 | XMS_ITS | Clinical Summary ---
Author Organization [facility] Address [address] [place] [address] Care Team Providers Care Fish Smoker Name Role Phone Unavailable Primary Care Provider Unavailabl e Source Comments [facility],non-owned Affiliates and Associated Physician Practices is amultiple site organization consisting of ambulatory clinics and hospital sitesin [place], [place], [place] and [place]. This disclosure is being madepursuant to the Care Everywhere program and may not contain all information available regarding this patient. 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 Gender Identity Not on file Sexual Orientation Not on file Plan of Treatment Health Maintenance Due Date Last Done Comments BONE DENSITY TESTING 1957 COLOGUARD (AGES 45-75) - COL ON CA SCREENING 1957 COLON MONITORING 1957 COLONOSCOPY - COLON CA SCREENING 1957 CT COLONOGRAPHY - COLON CA SCREENING 1957 Colorectal Cancer Screening 1957 FIT - COLON CA SCREENING 1957 FLEX SIG - COLON CA SCREENING 1957 LIPID TESTING 1957 MAMMOGRAM 1957 MEDICARE AWV 12 MONTHS 1957 HEPATITIS C SCREENING 11/10/1975 DTAP/TDAP/TD VACCINES (1 - Tdap) 1976 PNEUMOCOCCAL VACCINE 50+ (1 of 1 - PCV) 11/15/2007 ZOSTER VACCINE (1 of 2) 11/15/2007 DEPRESSION SCREENING 02/26/2024 COVID-19 VACCINE (1 - 2023-2 5 season) 2024 INFLUENZA VACCINE (#1) 2024 Respiratory Syncytial Virus (RSV) Vaccine Pt: or over 60 yrs (1 - 1-dose 75+ series) 2032 HEPATITIS B VACCINE Aged Out No longe r eligible based on patient's age to complete this topic HIB VACCINE Aged Out No longer eligi ble based on patient's age to complete this topic HPV VACCINE Aged Out No longer eligi ble based on patient's age to complete this topic MENINGOCOCCAL (Group B) VACC INE SHARED DECISION-MAKING Aged Out No longer eligibl e based on patient's age to complete this topic MENINGOCOCCAL GROUPS A/C/Y/W VACCINE Aged Out No longer eligible b ased on patient's age to complete this topic Insurance MEDICARE [facility]
--- OUTSIDE RECORDS SUMMARY | 2024-12-31 18:40 | XMS_ITS | Encounter Summary ---
Author Organization [facility] Address [address] [place] [address] Phone Care Team Providers Care Net Software Engineer Name Role Phone Long Buckley MD Primary Care Provider Trenton Collado PT Unavailable Unavailab Long Cardenas PT Unavailable [phone] Suhail Musa MD Unavailable [phone] Teena Solo MD Unavailable [phone] Encounter Details Date Type Department Care Team (Late st Contact Info) Description 03/22/2021 Orders Only [facility] [phone] Scanning, Provider Social History Tobacco Use Types Packs/Day Years Used Date Smoking Tobacco: Never Smokeless Tobacco: Never Alcohol Use Standard Drinks/Week Comments Yes 0 (1 standard drink = 0.6 oz pur e alcohol) 1 every 2 weeks PHQ-2 Answer Date Recorded PHQ-2 Total Score (If total score is 3 or more points, staff should administer the PHQ-9) 0 04/18/2020 Comments No Sex and Gender Information Value Date Recorded Sex Assigned at Not on file 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 Gender Identity Not on file Sexual Orientation Not on file documented as of this encounter Plan of Treatment Not on file documented as of this encounter Procedures Procedure Name Priority Date/Time Associated Diagnosis Comments SCAN - RADIOLOGY/IMAGING 03/22/2021 documented in this encounter Results * SCAN - RADIOLOGY/IMAGING (03/22/2021) Anatomical Region Laterality Modality Other us Provider Scanning Final Result documented in this encounter Visit Diagnoses Not on filedocumented in this encounter Care Teams Net Software Engineer Relationship Specialty Start Date End Date Long Buckley MD PCP - General 05/25/16 Trenton Collado, PT Physical Therapist Physical Therapy 08/02/21 06/02/22 [place] [address] [place] [address] Physical Therapist Physical Therapy 06/03/22 02/12/23 Suhail Musa MD [address] [place] [address] Referring Physician Plastic Surgery 10/17/23 Teena Solo MD [address] [place] [address] Consulting Physician Obstetrics and Gynecology 04/23/24 documented as of this encounter
--- OUTSIDE RECORDS SUMMARY | 2024-12-31 18:40 | XMS_ITS ---
Author Organization [facility] Address [address] [place] [address] Care Team Providers Care Station Installer And Repairer Name Role Phone Long Buckley MD Primary Care Provider uShail Musa MD Unavailable [phone] Teena Solo MD Unavailable [phone] Active Problems Problem Noted Date Diagnosed Date Left ovarian cyst 03/20/2024 Encounter for cosmetic procedure 01/28/2024 Deformity of reconstructed breast 01/28/2024 History of breast augmentation 10/17/2023 Breast implant rupture 10/17/2023 Generalized anxiety disorder 05/27/2023 Physical exam, annual 05/24/2022 Assessment & Plan (05/24/2022 3:10 PM CDT): Discussed lifestyle modifications, diet and exercise. Routine blood work ordered/reviewed today. Yearly vision and dental examinations. Mixed hyperlipidemia 05/24/2022 Assessment & Plan (05/24/2022 3:07 PM CDT): Lab Results Component Value Date CHOL 216 (H) 05/15/2022 CHOL 199 09/15/2019 CHOL 205 (H) 12/17/2013 Lab Results Component Value Date HDL 64 05/15/2022 HDL 55 09/15/2019 HDL 82 (H) 12/17/2013 Lab Results Component Value Date LDL 130 (H) 05/15/2022 LDL 121 (H) 09/15/2019 LDL 98 12/17/2013 Lab Results Component Value Date TRIG 109 05/15/2022 TRIG 118 09/15/2019 TRIG 125 12/17/2013 No results found for: POCCHDLR No results found for: POCNONHDL No results found for: POCCHLPL \ The 10-year ASCVD risk score (Justin DK, et al., 2019) is: 2.9% Values used to calculate the score: Age: 66 years Sex: Female Is Non- : No Diabetic: No Tobacco smoker: No Systolic Blood Pressure: 98 mmHg Is BP treated: No HDL Cholesterol: 64 mg/dL Total Cholesterol: 216 mg/dL At goal at this time Elevated ldl Diet and exercise reiterated Normocytic anemia 05/24/2022 Overview (05/24/2022): recheck cbc - likely 2/2 to blood loss from surgery 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 Acnes in September. Repeat cultures from 12/19/21 are pending, but likely to have C. Acnes. -okay for PICC line -plan ceftriaxone 2 g iv q24. Will need antibiotics x6 weeks as part of 2-stage revision. 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 She has tried several OTC remedies without relief. I will order Linzess 72 mcg 1 tab po before breakfast daily. I discussed this with her, including side effects. She is in agreement to try this. Gastroesophageal reflux disease 11/30/2016 Assessment & Plan (05/24/2022 3:05 PM CDT): Continue prn ppi, supplement with vit b12 and folic acid Assessment & Plan (02/14/2017 2:27 PM BED AND BREAKFAST INNKEEPER): She is taking a daily PPI, which has helped significantly. Heartburn has not resolved. She has bloating with this, also. I will continue the PPI. She is to follow a GERD diet, which we discussed. EGD to be scheduled. Since this issue has been chronic, we should evaluate for h. pylori and/or changes of Owusu's esophagus. Once her procedure is complete, we will re-evaluate the need for PPI versus H2 laci. Assessment & Plan (11/30/2016 1:07 PM CDT): Patient will continue daily PPI. When current symptoms marita may trial to wean. Basal cell carcinoma (BCC) of anterior chest Photoaged skin 03/18/2015 Overview (06/06/2017): Description: Retin A 0.08% QPM. Sunscreen daily Insomnia 12/14/2011 Overview (05/31/2016): INSOMNIA NEC Menopausal symptom 10/17/2011 Overview (06/01/2016): SYMPT FEM CLIMACT STATE DDD (degenerative disc disease), cervical Current Treatment and Therapy Plans No current plan information found. Past Treatment and Therapy Plans No past plan information found. Lifetime Dose Tracking * Chemical Lifetime Dose Automatic Entry Manual Entr y Fluoro Time 2.747 minutes 2.747 minutes 0 minutes Air kerma at the reference point (Ka,r) 3.12 mGy 3 .12 mGy 0 mGy DLP 1,028 mGycm 1,028 mGycm 0 mGycm Resolved Problems Problem Noted Date Diagnosed Date Resolved Date History of reverse total rep lacement of right shoulder joint 03/07/2022 10/17/2023 Overview (03/07/2022): Added automatically from request for surgery [id number] Wound dehiscence 01/08/2022 10/17/2023 Overview (01/08/2022): Added automatically from request for surgery [id number] Right lower lobe pneumonia 09/16/2018 0 04/15/2019 Closed displaced comminuted fracture of shaft of right humerus 08/27/2018 04/15/2019 Overview (08/27/2018): Added automatically from request for surgery [id number] Bloating 02/14/2017 04/11/2017 Assessment & Plan (02/14/2017 2:28 PM BED AND BREAKFAST INNKEEPER): This could be related to her constipation issues, but we will check for h.pylori during her EGD. Heartburn 02/14/2017 02/14/2017 Screening for colon cancer 02/14/2017 0 10/17/2023 Assessment & Plan (02/14/2017 2:31 PM BED AND BREAKFAST INNKEEPER): She has never had screening colonoscopy, so we should screen for colorectal cancer. No family history of colon cancer. Sore throat 11/30/2016 04/11/2017 Assessment & Plan (02/14/2017 2:24 PM BED AND BREAKFAST INNKEEPER): This is likely related to recent acute upper respiratory infection. There may be some component of reflux, but it is hard to say at this point. Assessment & Plan (11/30/2016 1:06 PM CDT): Rapid strep negative. Throat culture collected and submitted to the lab. With associated sinus symptoms I recommended trial antibiotic, amoxicillin 500 mg 3 times daily for the next 10 days. She will continue daily PPI. She is to contact the office with any change in, worsening, or non improvement in her condition. She should anticipate a call from me within 3 days to review her throat culture results. She is to reach out to the office if she has not heard from me within this time frame. Skin neoplasm 03/18/2015 10/17/2023 Overview (06/06/2017): Description: L and R chest. Pavan bx today. DDx - BCC. F/u per path Milia 03/18/2015 10/17/2023 Overview (06/06/2017): Description: Face. Counseled on dx. Benign. Pt advised to have them extracted during upcoming facial Anxiety 12/14/2011 06/02/2024 Overview (05/31/2016): Anxiety Assessment & Plan (05/24/2022 3:06 PM CDT): Stable - at this time Continue paxil 20 mg every day Gait instability 04/15/2019
--- OUTSIDE RECORDS SUMMARY | 2024-12-31 18:40 | XMS_ITS | Clinical Summary ---
Author Organization [facility] Address [address] [place] [address] Care Team Providers Care Edge Worker Name Role Phone Long Buckley MD Primary Care Provider Suhail Musa MD Unavailable [phone] VerTeena valerio MD Unavailable [phone] Allergies Active Allergy Reactions Criticality Noted Date Comments Diphenhydramine Other (See comments) Low feeling coming out of my skin Medications diclofenac DR (VOLTAREN) 75 mg EC tablet Take 1 tablet (75 mg total) by mouth 2 (two) times a day 180 tablet 3 01/13/2024 Active omeprazole (PriLOSEC) 40 mg capsuleIndicatio ns:Stress Ulcer Prophylaxis Take 1 capsule (40 mg total) by mouth as needed Active PARoxetine (PAXIL) 20 mg tabletIndication s:Anxiety with Depression Take 1 tablet (20 mg total) by mouth nightly 90 tablet 3 06/02/2024 Active zolpidem CR (AMBIEN CR) 12.5 mg CR tablet TAKE 1 TABLET BY MOUTH EVERY DAY AT BEDTIME NEEDED FOR SLEEP 30 tablet 5 07/13/2024 Active Active Problems Problem Noted Date Diagnosed Date [...] \ The 10-year ASCVD risk score (Justin ELIZABETH, et al., 2019) is: 2.9% Values used [...] (09/20/2021): Added automatically from request for surgery [id number] Failed total joint replacement 11/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 Overview (11/25/2019): Added automatically from request for surgery [id number] Right shoulder pain 11/04/2019 Overview (11/04/2019): Added automatically from request for surgery [id number] Osteopenia after menopause 09/16/2018 Other constipation 02/14/2017 Assessment & Plan (02/14/2017 2:30 PM DIRECTOR OF ENGINEERING): This is a chronic issue that has [...] acid Assessment & Plan (02/14/2017 2:27 PM DIRECTOR OF ENGINEERING): She is taking a daily PPI, which [...] CLIMACT STATE DDD (degenerative disc disease), cervical Resolved Problems Problem Noted Date Diagnosed Date Resolved Date History of reverse total rep lacement of right shoulder joint 03/07/2022 10/17/2023 Overview (03/07/2022): Added automatically from request for surgery [id number] Wound dehiscence 01/08/2022 10/17/2023 Overview (01/08/2022): Added automatically from request for surgery [id number] Right lower lobe pneumonia 09/16/2018 0 04/15/2019 Closed displaced comminuted fracture of shaft of right humerus 08/27/2018 04/15/2019 Overview (08/27/2018): Added automatically from request for surgery [id number] Bloating 02/14/2017 04/11/2017 Assessment & Plan (02/14/2017 2:28 PM DIRECTOR OF ENGINEERING): This could be related to her constipation issues, but we will check for h.pylori during her EGD. Heartburn 02/14/2017 02/14/2017 Screening for colon cancer 02/14/2017 0 10/17/2023 Assessment & Plan (02/14/2017 2:31 PM DIRECTOR OF ENGINEERING): She has never had screening colonoscopy, so we should screen for colorectal cancer. No family history of colon cancer. Sore throat 11/30/2016 04/11/2017 Assessment & Plan (02/14/2017 2:24 PM DIRECTOR OF ENGINEERING): This is likely related to recent acute [...] Overview (06/06/2017): Description: L and R chest. Alekseyve bx today. DDx - BCC. F/u per path Milia 03/18/2015 10/17/2023 Overview (06/06/2017): Description: Face. Counseled on dx. Benign. Pt advised to have them extracted during upcoming facial Anxiety 12/14/2011 06/02/2024 Overview (05/31/2016): Anxiety Assessment & Plan (05/24/2022 3:06 PM CDT): Stable - at this time Continue paxil 20 mg every day Gait instability 04/15/2019 Encounters Date Type Department Care Team Description 10/14/2024 Orders Only [facility] Primary Care at [address] [place] [address] Long Buckley MD 10/13/2024 3:50 PM CDT - 10/13/2024 11:59 PM CDT Hospital Encounter [facility] [address] [place] [address] Discharge Disposition: Discharge to home or self care 10/13/2024 3:30 PM CDT Office Visit [facility] [place] ([facility]) - [facility] [address] [place] [address] Lashanda Devi MD Left foot pain (Primary Dx) from Last 3 Months Immunizations Immunization Administration Dates Next Due Influenza, Quadrivalent, Rec ombinant, Egg Free, Preservative Free, Intramuscular 11/27/2019 Influenza, Quadrivalent, Split, Intramuscular Influenza, Quadrivalent, Spl it, Preservative Free, Intramuscular 11/01/2017 Influenza, Split 12/01/2009,11/25/2008 Influenza, Trivalent, High D ose, Split, Preservative Free, Intramuscular 02/28/2024 Influenza, Trivalent, IM (MDV) 12/01/2020,2015 Influenza, Unspecified 12/20/2022,11/25/2021 Pfizer SARS-CoV-2 Monovalent Vaccination (12+ Yrs) PURPLE 05/05/2020,04/13/2020 ZOSTER Recombinant 05/05/2018 Surgical History Surgery Date Site/Laterality Comments CHOLECYSTECTOMY 02/25/1998 - 02/24/1999 SECTION 02/25/1990 - 02/24/1991 AUGMENTATION MAMMOPLASTY 02/25/2001 - 02/24/2002 Bilateral TONSILLECTOMY 02/25/1958 - 02/24/1959 ORIF HUMERUS FRACTURE 05/06/2018 Right TUBAL LIGATION 02/25/1990 - 02/24/1991 DILATION AND CURETTAGE OF UTERUS 02/25/2002 - 02/24/2003 BASAL CELL CARCINOMA EXCISION 02/25/2021 - 02/24/2022 CARDIAC CATHETERIZATION 02/26/2016 - 02/24/2017 minimal non osbtructive CAD FLUORO GUIDED ASPIRATION OR INJECTION LARGE JOINT RIGHT 09/01/2021 Right REVERSE TOTAL SHOULDER ARTHROPLASTY 09/09/2018 Right KNEE ARTHROSCOPY 02/25/2022 - 02/24/2023 REVISION TOTAL SHOULDER ARTHROPLASTY 12/08/2019 Right Reverse total shoulder revision SALPINGOOPHORECTOMY 04/23/2024 Bilateral BIOPSY 11/12/2019 Right right shoulder tissue BIOPSY 09/28/2021 Right shoulder tissue SHOULDER SURGERY 12/19/2021 Right explant INCISION AND DRAINAGE 01/09/2022 Right shoulder and abx spacer REVERSE TOTAL SHOULDER ARTHROPLASTY 04/05/2022 Revision Medical History Medical History Date Comments Osteoarthritis Anxiety and depression DDD (degenerative disc disease), cervical BCC (basal cell carcinoma of skin) GERD (gastroesophageal reflux disease) Left ovarian cyst Dyslipidemia Family History Medical History Relation Name Comments Coronary artery disease Father Diabetes Father Atrial fibrillation Mother Blood Clot Mother femoral artery Heart attack Mother Heart disease Mother Stroke Mother Anesthesia problems Neg Hx Relation Name Status Comments Father Mother afib, strokes Social History Tobacco Use Types Packs/Day Years Used Date Smoking Tobacco: Never Passive Smoke Exposure: Never Smokeless Tobacco: Never Tobacco Cessation:Counseling Given: Not Answered Alcohol Use Standard Drinks/Week Comments Yes 0 (1 standard drink = 0.6 oz pur e alcohol) 1 every 2 weeks AUDIT-C Answer Date Recorded Q1: How often do you have a drink containing alc ohol? 2-4 times a month 06/01/2024 Q2: How many drinks containi ng alcohol do you have on a typical day when you are drinking? 1 or 2 06/01/2024 Q3: How often do you have si x or more drinks on one occasion? Never 06/01/2024 PHQ-2 Answer Date Recorded PHQ-2 Total Score (If total score is 3 or more points, staff should administer the PHQ-9) 0 06/02/2024 Personal Safety Answer Date Recorded Have you ever been in or are you currently in a harmful physical or emotional relationship or is someone making you feel afraid or unsafe? Denies 08/30/2024 Comments No Sex and Gender Information Value Date Recorded Sex Assigned at Not on file Legal Sex Female 11:53 PM DIRECTOR OF ENGINEERING Gender Identity Not on file Sexual Orientation Not on file Obstetrics History Para Term AB IAB SAB Ectopic Multiple Livin g Live Births 2 2 2 2 2 Date Outcome GA Total Labor Labor/2nd/3rd Weight Sex Type Anes PTL Shauna A1 A5 Name Clin 1987 Term F Vaginal Living 1989 Term F C-Secti on Living Last Filed Vital Signs Vital Sign Reading Time Taken Comments Blood Pressure 139/105 08/30/2024 8:00 AM CDT Pulse 73 08/30/2024 9:50 AM CDT Temperature 36.5 C (97.7 F) 08/30/2024 7:26 AM CDT Respiratory Rate 16 08/30/2024 8:00 AM CDT Oxygen Saturation 96% 08/30/2024 9:50 AM CDT Inhaled Oxygen Concentration - - Weight 62.1 kg (137 lb) 10/13/2024 3:41 PM CDT Height 170.2 cm (5' 7) 10/13/2024 3:41 PM CDT Body Mass Index 21.46 10/13/2024 3:41 PM CDT Plan of Treatment Health Maintenance Due Date Last Done Comments Hepatitis C Screening 1955 DTaP/Tdap/Td Vaccine (1 - Tdap) 1968 Hepatitis B Screening 11/15/1975 Pneumococcal vaccine 65+ (1 of 2 - PCV) 1976 Osteoporosis Screening-Bone Density Scan 05/17/2011 05/16/2009 Zoster Vaccine (2 of 2) 06/30/2018 05/05/2018 Breast Cancer Screening-Mammogram 10/24/2024 024, 08/22/2010 Covid-19 Vaccine (5 - 2024-2 6 season) 2024 03/09/2022, 12/01/2020, 05/05/2020, Additional history exists Influenza Vaccine (#1) 2024 , 12/20/2022, 11/25/2021, Additional history exists Depression Screening 06/02/2025 06/02/2024, 10/17/2023, 05/27/2023, Additional history exists Well Visit 65+ 06/02/2025 06/02/2024, 04/0 02/2023, 05/24/2022, Additional history exists Fall Risk Assessment 06/16/2025 06/16/2024, 06/02/2024, 10/17/2023, Additional history exists Colon Cancer Screening-Colonoscopy 03/22/2027 03/22/2017, 03/22/2017 Colon Cancer Screening-CT Colonography Discontinued 03/22/2017, 03/22/2017 Colon Cancer Screening-DNA Stool Discontinued 03/22/19 18, 03/22/2017 Colon Cancer Screening-FIT Discontinued 03/22/2017, Colon Cancer Screening-Sigmoidoscopy Discontinued 03/22/2017, 03/22/2017 Cervical Cancer Screening Discontinued 03/11/2024 Medical Devices Implanted Type Area Rn Teacher Device Identifier Shelf Expiration Date Model / Serial / Lot Dixie Orthopaedics 6191-1-010 Simplex P Radiopaque Full Dose Cement Bone Sterile - [id number] Implanted:Qty: 1 on 09/09/2018 by Steffen Lombardi MD at [facility] Bone Cement Right: Shoulder [employer] 09/24/2020 6191-1-010 / / [id number] Breast Breast Bilateral : Breast Allosource [id number] Freeze Dried Chips 4-10mm Graft 30ml Bone Cancellous - [id number] Implanted:Qty: 1 on 05/06/2018 by Steffen Lombardi MD at [facility] Right: Humerus Allosource 02/05/2022 [id number] / / [id number] Synthes 241.901 Lcp Combi Philos 11h86q2.5mm 3 Hole Shaft Lock Compression - [id number] Implanted:Qty: 1 on 05/06/2018 by Steffen Lombardi MD at [facility] Right: Humerus Synthes I 241.901 / / Synthes 204.830 3.5mm 6mm 30mm 2.5mm Self Tap Small Hexagonal Socket Low Profile - [id number] Implanted:Qty: 1 on 05/06/2018 by Steffen Lombardi MD at [facility] Right: Humerus Synthes I 204.830 / / Synthes 212.117 3.5mm 2.9mm 40mm Self Tap Lock Stardrive Conical Head T15 Full - [id number] Implanted:Qty: 3 on 05/06/2018 by Steffen Lombardi MD at [facility] Right: Humerus Synthes I 212.117 / / Synthes 212.118 3.5mm 2.9mm 42mm Self Tap Lock Stardrive Conical Head Full Thread - [id number] Implanted:Qty: 2 on 05/06/2018 by Steffen Lombardi MD at [facility] Right: Humerus Synthes I 212.118 / / Synthes 212.119 3.5mm 2.9mm 45mm Self Tap Lock Stardrive Conical Head T15 Full - [id number] Implanted:Qty: 1 on 05/06/2018 by Steffen Lombardi MD at [facility] Right: Humerus Synthes I 212.119 / / Synthes 212.109 3.5mm 2.9mm 26mm Self Tap Lock Stardrive Conical Head T15 Full - [id number] Implanted:Qty: 2 on 05/06/2018 by Steffen Lombardi MD at [facility] Right: Humerus Synthes I 212.109 / / Synthes 02.212.056 3.5mm 56mm Self Tap Lock Stardrive T15 Full Thread Screw Bone - [id number] Implanted:Qty: 1 on 05/06/2018 by Steffen Lombardi MD at [facility] Right: Humerus Synthes I 02.212.056 / / Synthes 212.121 3.5mm 2.9mm 50mm Self Tap Lock Stardrive Conical Head T15 Full - [id number] Implanted:Qty: 1 on 05/06/2018 by Steffen Lombardi MD at [facility] Right: Humerus Synthes I 212.121 / / Depuy Orthopaedics Inc [id number] Delta Xtend 27mm Cementless Shoulder Standard Component Glenoid Latex Free - [id number] Implanted:Qty: 1 on 09/09/2018 by Steffen Lombardi MD at [facility] Right: Shoulder Depuy Orthopaedics Inc [id number] 05/26/2023 [id number] / / [id number] Depuy Orthopaedics Inc [id number] Delta Xtend 4.5mm 36mm Lock Shoulder Glenoid Screw Bone Metaglene - [id number] Implanted:Qty: 1 on 09/09/2018 by Steffen Lombardi MD at [facility] Right: Shoulder Depuy Orthopaedics Inc [id number] 04/25/2023 [id number] / / [id number] Depuy Orthopaedics Inc [id number] Delta Xtend 4.5mm 36mm Lock Shoulder Glenoid Screw Bone Metaglene - [id number] Implanted:Qty: 1 on 09/09/2018 by Steffen Lombardi MD at [facility] Right: Shoulder Depuy Orthopaed[employer] Inc [id number] 05/26/2023 [id number] / / [id number] Depuy Orthopaedics Inc [id number] Delta Xtend 38mm Glenosphere Shoulder Eccentric Component Glenoid Latex Free - [id number] Implanted:Qty: 1 on 09/09/2018 by Steffen Lombardi MD at [facility] Right: Shoulder Depuy Orthopaed[employer] Inc [id number] 05/26/2023 [id number] / / [id number] Depuy Orthopaed[employer] Inc [id number] Delta Xtend 4.5mm 18mm Shoulder Glenoid Screw Bone Metaglene - [id number] Implanted:Qty: 1 on 09/09/2018 by Steffen Lombardi MD at [facility] Right: Shoulder Depuy Orthopaed[employer] Inc [id number] 04/25/2023 [id number] / / [id number] Depuy Orthopaedics Inc [id number] Delta Xtend 4.5mm 18mm Shoulder Glenoid Screw Bone Metaglene - [id number] Implanted:Qty: 1 on 09/09/2018 by Steffen Lombardi MD at [facility] Right: Shoulder Depuy Orthopaedics Inc [id number] 05/26/2023 [id number] / / [id number] Depuy Orthopaedics Inc [id number] Delta Xtend 8mm Cemented Monobloc Shoulder Epiphysis 1 Standard Latex Free - [id number] Implanted:Qty: 1 on 09/09/2018 by Steffen Lombardi MD at [facility] Right: Shoulder Depuy Orthopaedics Inc [id number] 10/25/2022 [id number] / / [id number] Depuy Orthopaedics Inc [id number] 10.75mm Hip Femoral 2 Restrictor Cement Polyethylene Sterile - [id number] Implanted:Qty: 1 on 09/09/2018 by Steffen Lombardi MD at [facility] Right: Shoulder Depuy Orthopaedics Inc [id number] 12/25/2022 [id number] / / [id number] Depuy Orthopaedics Inc [id number] Delta Xtend 38mm Shoulder +3mm Standard Cup Humeral Polyethylene Latex Free - [id number] Implanted:Qty: 1 on 09/09/2018 by Steffen Lombardi MD at [facility] Right: Shoulder Depuy Orthopaed[employer] Inc [id number] 05/25/2022 [id number] / / [id number] Depuy Orthopaedics Inc [id number] Global Unite 8mm 177mm Modular Shoulder Long Stem Humeral - [id number] Implanted:Qty: 1 on 12/08/2019 by Tee Layne MD at [facility] Right: Shoulder Dep[employer] Orth[employer] Inc [id number] / / Dixie [employer]ics Simplex P Radiopaque Full Dose Cement Bone Sterile - [id number] Implanted:Qty: 1 on 12/08/2019 by Tee Layne MD at [facility] Right: Shoulder [employer] [id number] / / Ca Orthopaedics Simplex P Radiopaque Full Dose Cement Bone Sterile - [id number] Implanted:Qty: 1 on 12/08/2019 by Tee Layne MD at [facility] Right: Shoulder Ca Orthopaedics [id number] / / Tornier Inc [id number] Latitude 8-15mm Restrictor Elbow Restrictor Cement - [id number] - [id number] Implanted:Qty: 1 on 12/08/2019 by Tee Layne MD at [facility] Right: Shoulder [employer] Inc [id number] 09/10/2024 TOE872 / [id number] / Depuy Orthopaedics Inc [id number] Delta Xtend 38mm Shoulder +6mm Standard Cup Humeral Polyethylene Latex Free - [id number] Implanted:Qty: 1 on 12/08/2019 by Tee Layne MD at [facility] Right: Shoulder Depuy Orthopaedics Inc [id number] 06/25/2023 [id number] / / [id number] Depuy Orthopaedics Inc [id number] Implant Shldr Xtend Mod Awa 155epi Por Sz1 - [id number] Implanted:Qty: 1 on 12/08/2019 by Tee Layne MD at [facility] Right: Shoulder Depuy Orthopaedics Inc [id number] 08/24/2029 [id number] / / [employer]c Remedy 10.5mm 116mm 12.6x10.5mm Modular Shoulder 19mm Medium Stem Rshsmd - [id number] Implanted:Qty: 1 on 12/19/2021 by Tee Layne MD at [facility] Right: Shoulder [employer] LLC 01/24/2026 RSHSMD / / [id number] [employer] Remedy 45mm 25mm Modular Shoulder Head Humeral Pmma Gentamicin Rshhmd - [id number] Implanted:Qty: 1 on 12/19/2021 by Tee Layne MD at [facility] Right: Shoulder [employer] LLC 01/24/2026 [facility] / / [id number] [employer] Inc Palacos R High Viscosity Cement 40gm Bone Green [id number] - [id number] Implanted:Qty: 1 on 12/19/2021 by Tee Layne MD at [facility] Right: Shoulder [employer] [id number] 10/25/2025 5854843 / / [id number] [employer] Palacos R High Viscosity Cement 40gm Bone Green 3143906 - [id number] Implanted:Qty: 1 on 01/09/2022 by Tee Layne MD at [facility] Right: Shoulder [employer] Inc 02/24/2026 [id number] / / [id number] [employer] Palacos R High Viscosity Cement 40gm Bone Green 9324094 - [id number] Implanted:Qty: 1 on 01/09/2022 by Tee Layne MD at [facility] Right: Shoulder [employer] Inc 02/24/2026 3831702 / / [id number] [employer] Remedy 40mm 25mm Modular Shoulder Head Humeral Pmma Gentamicin Rshhsm - [id number] Implanted:Qty: 1 on 01/09/2022 by Tee Layne MD at [facility] Right: Shoulder [employer] 11/24/2025 [facility] / / [id number] [employer] Remedy 10.5mm 116mm 12.6x10.5mm Modular Shoulder 19mm Medium Stem Rsmd - [id number] Implanted:Qty: 1 on 01/09/2022 by Tee Layne MD at [facility] Right: Shoulder [employer] 01/24/2026 RSMD / / [id number] Net[employer] Inc Tornier Aequalis Perform 15mm Press Fit Long Post Shoulder Liv329 - [id number] Implanted:Qty: 1 on 04/05/2022 by Oracio Cortez MD at [facility] Right: Shoulder [employer] Inc 08/30/2026 JUU945 / / [id number] [employer] Inc Tornier Aequalis Perform 25mm Lateralize Augment Reverse Shoulder Cqv807 - [id number] Implanted:Qty: 1 on 04/05/2022 by Oracio Cortez MD at [facility] Right: Shoulder [employer]ab [employer] Inc 2026 ODB585 / / [id number] Musculoskeletal Transplant Graft Bone Whole Bone Humerus Proximal With Cuff [facility] 509377 - [id number] - [id number] Implanted:Qty: 1 on 04/05/2022 by Oracio Cortez MD at [facility] Right: Shoulder Musculoskeletal Transplant 05/13/2026 569686 / [id number] / [id number] Description:COMPANY IS-MTF B IOLemotion.me PROD CODE [id number] [employer] Bioheart Aequalis Perform Reversed 5mm 14mm Peripheral Glenoid Screw Eww643 - [id number] Implanted:Qty: 2 on 04/05/2022 by Oracio Cortez MD at [facility] Right: Shoulder [employer] Inc JHG550 / / Baob[employer] Inc Aequalis Perform Reversed 5mm 26mm Peripheral Glenoid Screw Mko995 - [id number] Implanted:Qty: 1 on 04/05/2022 by Oracio Cortez MD at [facility] Right: Shoulder [employer] Inc YMG084 / / Rojas [employer] Inc Aequalis Perform Reversed 5mm 30mm Peripheral Glenoid Screw Cmb129 - [id number] Implanted:Qty: 1 on 04/05/2022 by Oracio Cortez MD at [facility] Right: Shoulder [employer] Inc JZP740 / / [employer] Inc Latitude 8-15mm Restrictor Elbow Restrictor Cement Wob388 - [id number] Implanted:Qty: 1 on 04/05/2022 by Oracio Cortez MD at [facility] Right: Shoulder [employer] Inc 12/07/2026 DEO000 / / [id number] Dixie [employer]ics Simplex P Radiopaque Full Dose Cement Bone Sterile 6191-1-010 - [id number] Implanted:Qty: 1 on 04/05/2022 by Oracio Cortez MD at [facility] Right: Shoulder Ca [employer]edics 08/25/2023 6191-1-010 / / [id number] [employer] Simplex P Radiopaque Full Dose Cement Bone Sterile 6191-1-010 - [id number] Implanted:Qty: 1 on 04/05/2022 by Oracio Cortez MD at [facility] Right: Shoulder Ca [employer]edics 04/25/2023 6191-1-010 / / [id number] [employer] Tornier Aequalis Perform Od36 Mm Reverse Shoulder +2 Mm Inferior Offset Sphere Glenoid Fvu655 - [id number] Implanted:Qty: 1 on 04/05/2022 by Oracio Cortez MD at [facility] Right: Shoulder [employer] Inc 11/21/2026 KRP844 / / [id number] Karlee [employer] Inc 10mm 130mm Shoulder Stem Humeral Trabecular Metal Tivanium [id number] - [id number] Implanted:Qty: 1 on 04/05/2022 by Oracio Cortez MD at [facility] Right: Shoulder Karlee [employer] Inc 01/02/2032 [id number] / / [id number] Arthrex Inc Fibertape Cerclage Suture Nonabsorbable Sterile Ar-7267 - [id number] Implanted:Qty: 1 on 04/05/2022 by Oracio Cortez MD at [facility] Right: Shoulder Arthrex Inc 10/25/2024 AR-7267 / / [id number] Arthrex Inc Arthrex Suturetape Tigerlink 1.3mm Suture Nonabsorbable Latex Ar-7535t - [id number] Implanted:Qty: 1 on 04/05/2022 by Oracio Cortez MD at [facility] Right: Shoulder Arth[employer] Inc 04/24/2026 AR-7535T / / [id number] Description:THIS IS A SUTURE Synthes Lcp Combi 348a80y1.4mm 14 Hole Limit Contact Taper End Plate Bone 223.641 - [id number] Implanted:Qty: 1 on 04/05/2022 by Oracio Cortez MD at [facility] Right: Shoulder Synthes I 223.641 / / Description:223.641 flagged 04/09 Synthes 3.5mm 6mm 26mm 2.5mm Self Tap Small Hexagonal Socket Low Profile 204.826 - [id number] Implanted:Qty: 1 on 04/05/2022 by Oracio Cortez MD at [facility] Right: Shoulder Synthes I 204.826 / / Synthes 3.5mm 2.9mm 34mm Self Tap Lock Stardrive Conical Head Pelvis T15 212.113 - [id number] Implanted:Qty: 2 on 04/05/2022 by Oracio Cortez MD at [facility] Right: Shoulder Synthes I 212.113 / / Synthes 3.5mm 2.9mm 26mm Self Tap Lock Stardrive Conical Head T15 Full 212.109 - [id number] Implanted:Qty: 3 on 04/05/2022 by Oracio Cortez MD at [facility] Right: Shoulder Synthes I 212.109 / / Synthes 3.5mm 2.9mm 10mm Self Tap Lock Stardrive Conical Head T15 Full 212.101 - [id number] Implanted:Qty: 2 on 04/05/2022 by Oracio Cortez MD at [facility] Right: Shoulder Synthes I 212.101 / / Karlee [employer] Inc 36mm H+6mm Reverse Retentive Humerus 12d 65d Liner Shoulder [id number] - [id number] Implanted:Qty: 1 on 04/05/2022 by Oracio Cortez MD at [facility] Right: Shoulder Karlee [employer] Inc [id number] 07/17/2028 [id number] / / [id number] Synthes 3.5mm 2.9mm 24mm Self Tap Lock Stardrive Conical Head Pelvis T15 212.108 - [id number] Implanted:Qty: 2 on 04/05/2022 by Oracio Cortez MD at [facility] Right: Shoulder Synthes I 212.108 / / Sientra Inc Implant Breast Round Moderate Profile Smooth Opus Luxe 350cc Gel 69945-200yp - [id number] - [id number] Implanted:Qty: 1 on 06/16/2024 at [facility] Left: Breast Sientra Inc 03/07/2029 77694-765QB / [id number] / Sientra Inc Implant Breast Round Moderate Profile Smooth Opus Luxe 350cc Gel 40023-715yi - [id number] - [id number] Implanted:Qty: 1 on 06/16/2024 at [facility] Right: Breast Sientra Inc 05/05/2029 92648-899BQ / [id number] / Explanted Type Area Rn Teacher Device Identifier Shelf Expiration Date Model / Serial / Lot Saline Breast Implant Explanted:Qty : 1 on 06/16/2024 by Florencia Nagy MD at [facility] Breast Right: Breast [employer] DUP UNKNOWN / / [id number] Description:RUPTURED Saline Breast Implant Explanted:Qty : 1 on 06/16/2024 by Florencia Nagy MD at [facility] Breast Left: Breast [employer] DUP UNKNOWN / / [id number] Synthes 292.12 Chandan 1.25mm 150mm Trocar Tip Wire Fixation Stainless Steel - [id number] Explanted:Qty : 1 on 05/06/2018 at [facility] Right: Humerus Synthes I 292.12 / / Procedures Procedure Name Priority Date/Time Associated Diagnosis Comments XR FOOT LEFT 3 OR MORE VIEWS Schedule Routine, Read Routine (OP Routine) 10/13/2024 3:56 PM CDT Left foot pain PAP, REFLEX HPV Routine 03/11/2024 11:41 AM DIRECTOR OF ENGINEERING Cervical cancer screening DIAGNOSTIC MAMMOGRAM BILATERAL W GILBERT W IMPLANTS Schedule Routine, Read Routine (OP Routine) 10/25/2023 2:38 PM CDT Breast implant rupture, initial encounter Pain of breast COLONOSCOPY REPORT 03/22/2017 HM DEXA SCAN Routine 05/16/2009 from Last 3 Months or Most Recently Relevant to Health Maintenance Results * XR Foot Left 3+ View (10/13/2024 3:56 PM CDT) Anatomical Region Laterality Modality Lower Extremities, Foot Left Computed Radiography 10/13/2024 5:00 PM CDT Impressions 10/13/2024 5:00 PM CDT Mild left forefoot and midfoot osteoarthritis. Electronically signed by: Lio Rees M.D. Narrative 10/13/2024 5:00 PM CDT EXAMINATION: XR FOOT LEFT 3 OR MORE VIEWS HISTORY: Left foot pain FINDINGS: 3 views of the left foot were performed with comparison made to 07/30/2023. There is mild great toe metatarsophalangeal joint osteoarthritis. Prior fusion of the proximal interphalangeal joint of the 2nd toe is noted. There is mild mid foot osteoarthritis. There is no acute fracture. Procedure Note Lio Rees MD PhD - 10/13/2024 EXAMINATION: XR FOOT LEFT 3 OR MORE VIEWS HISTORY: Left foot pain FINDINGS: 3 views of the left foot were performed with comparison made to 07/30/2023. There is mild great toe metatarsophalangeal joint osteoarthritis. Prior fusion of the proximal interphalangeal joint of the 2nd toe is noted. There is mild mid foot osteoarthritis. There is no acute fracture. IMPRESSION: Mild left forefoot and midfoot osteoarthritis. Electronically signed by: Lio Rees M.D. Lashanda Devi MD IMG XR PROCEDURES Fi nal Result * Pap, reflex HPV (03/11/2024 11:41 AM DIRECTOR OF ENGINEERING) Clinical indication Comment [facility] - 01 Comment: NEGATIVE FOR INTRAEPITHELIAL LESION OR MALIGNANCY. CELLULAR CHANGES ASSOCIATED WITH ATROPHY ARE PRESENT. Specimen adequacy: Comment [facility] - 01 Comment: Satisfactory for evaluation. Endocervical component may not be distinguished in cases of atrophy. Clinician provided ICD10 Comment [facility] - Comment:Z12.4 Performed by Comment [facility] - 01 Comment:Steven Armstrong totechnologist ([facility]) . . [facility] - 01 Note: Comment [facility] - 01 Comment: The Pap smear is a screening test designed to aid in the detection of premalignant and malignant conditions of the uterine cervix. It is not a diagnostic procedure and should not be used as the sole means of detecting cervical cancer. Both false-positive and false-negative reports do occur. Test methodology Comment [facility] - Comment: This liquid based ThinPrep(R) pap test was screened with the use of an image guided system. . Comment [facility] - Comment: The HPV DNA reflex criteria were not met with this specimen result therefore, no HPV testing was performed. Thin prep 03/11/2024 11:4 1 AM DIRECTOR OF ENGINEERING 03/11/2024 Narrative [facility] - 03/13/2024 4:10 PM DIRECTOR OF ENGINEERING Performed at: - [address] [id number] Firewood Cutter: Christina Villegas MD, Phone: [phone] Specimen Comment: Source.............Cervix;Endocervix Specimen Comment: No. of containers..01 ThinPrep Vial us Teena Solo MD LAB CYTOLOGY ORDERAB LES Final [facility] - * Diagnostic Mammogram Bilateral w Gilbert w Implants (10/25/2023 2:38 PM CDT) Anatomical Region Laterality Modality Breast Bilateral Mammography 10/25/2023 2:53 PM CDT Impressions 10/25/2023 2:53 PM CDT 1. No mammographic evidence of malignancy in either breast. 2. Ruptured right breast implant. Findings and recommendations were communicated to the patient. OVERALL FINAL ASSESSMENT: BI-RADS Category 2: Benign. RECOMMENDATION: Annual screening mammography is recommended. Surgical consultation is recommended for right breast implant rupture. The patient's information was entered into a reminder system with a target due date for the next mammogram. Electronically signed by: Danny Thomas M.D. Narrative 10/25/2023 2:53 PM CDT EXAMINATION: DIAGNOSTIC MAMMOGRAM BILATERAL W GILBERT W IMPLANTS HISTORY: Possible ruptured right breast implant. COMPARISON: Screening mammogram dated 08/22/2010. TECHNIQUE: Full field digital mammographic views of both breasts were performed, including computer aided detection (CAD) and tomosynthesis. BREAST PARENCHYMAL COMPOSITION: The breasts are heterogenously dense, which may obscure small masses. MAMMOGRAM FINDINGS: Bilateral saline breast implants are noted. The right implant is ruptured and folded upon itself. No suspicious mass, calcification or area of architectural distortion is identified in either breast. Pramod CUI IMG MAMMO PROCEDURES Fi nal Result * COLONOSCOPY REPORT (03/22/2017) Anatomical Region Laterality Modality Other Provider Scanning GI PROCEDURE ORDERABLES Final Result * DEXA SCAN (05/16/2009) DEXA Scan Abnormal Comment:osteopenia Historical Provider HEALTH MAINTENANCE Final Result from Last 3 Months or Most Recently Relevant to Health Maintenance Insurance MEDICARE [facility] MEDICARE AAR AARP MEDICARE Advance Directives For more information, please contact: [phone] * Full Code (Latest Code Status on File) Date Activated Date Inactivated Comments 04/05/2022 5:09 PM 04/06/2022 4:04 PM * Full Code Date Activated Date Inactivated Comments 01/09/2022 4:39 PM 01/10/2022 4:17 PM * Full Code Date Activated Date Inactivated Comments 12/19/2021 8:19 PM 12/21/2021 5:10 PM * Full Code Date Activated Date Inactivated Comments 12/08/2019 3:32 PM 12/09/2019 7:14 PM * Full Code Date Activated Date Inactivated Comments 09/09/2018 2:43 PM 09/11/2018 4:24 PM Care Teams Edge Worker Relationship Specialty Start Date End Date Long Buckley MD PCP - [facility] [address] [place] [address] Referring Physician Plastic Surgery 10/17/23 Teena Solo MD [address] [place] [address] Consulting Physician Obstetrics and Gynecology 04/23/24
--- OUTSIDE RECORDS SUMMARY | 2024-12-31 18:40 | XMS_ITS | Encounter Summary ---
Author Organization [facility] Address [address] [place] [address] Phone Care Team Providers Care Cone Cleaner Name Role Phone Long Buckley MD Primary Care Provider Ternton Collado PT Unavailable Unavailab Long Cardenas PT Unavailable [phone] Suhail Musa MD Unavailable [phone] Teena Solo MD Unavailable [phone] Encounter Details Date Type Department Care Team (Late st Contact Info) Description 05/31/2021 Orders Only [facility] OS PMR [phone] Scanning, Provider Social History Tobacco Use Types Packs/Day Years Used Date Smoking Tobacco: Never Smokeless Tobacco: Never Alcohol Use Standard Drinks/Week Comments Yes 0 (1 standard drink = 0.6 oz pur e alcohol) 1 every 2 weeks PHQ-2 Answer Date Recorded PHQ-2 Total Score (If total score is 3 or more points, staff should administer the PHQ-9) 0 05/23/2021 Comments No Sex and Gender Information Value Date Recorded Sex Assigned at Not on file Legal Sex Female 11:53 PM BROADCAST OPERATIONS DIRECTOR Gender Identity Not on file Sexual Orientation Not on file documented as of this encounter Plan of Treatment Not on file documented as of this encounter Procedures Procedure Name Priority Date/Time Associated Diagnosis Comments SCAN - RADIOLOGY/IMAGING 05/31/2021 documented in this encounter Results * SCAN - RADIOLOGY/IMAGING (05/31/2021) Anatomical Region Laterality Modality Other us Provider Scanning Final Result documented in this encounter Visit Diagnoses Not on filedocumented in this encounter Care Teams Cone Cleaner Relationship Specialty Start Date End Date Long Buckley MD PCP - General 05/25/16 Trenton Collado, PT Physical Therapist Physical Therapy 08/02/21 06/02/22 [place] [address] [place] [address] Physical Therapist Physical Therapy 06/03/22 02/12/23 Suhail Musa MD [address] [place] [address] Referring Physician Plastic Surgery 10/17/23 Teena Solo MD [address] [place] [address] Consulting Physician Obstetrics and Gynecology 04/23/24 documented as of this encounter
--- OUTSIDE RECORDS SUMMARY | 2024-12-31 18:40 | XMS_ITS | Encounter Summary ---
Author Organization [facility] Address [address] [place] [address] Care Team Providers Care Manager Materials Management Name Role Phone Unavailable Primary Care Provider Unavailabl e Encounter Details Date Type Department Care Team (Late st Contact Info) Description 06/03/[address] [facility] - DermPath Lab [address] [facility] [place] [address] Yolanda Pimentel MD [address] [facility] [address] [place] [address] Social History Tobacco Use Types Packs/Day Years Used Date Smoking Tobacco: Never Assessed Comments Unknown Sex and Gender Information Value Date Recorded Sex Assigned at Not on file Legal Sex Female 10:35 AM STOCK PREPARER Gender Identity Not on file Sexual Orientation Not on file documented as of this encounter Plan of Treatment Not on file documented as of this encounter Procedures Procedure Name Priority Date/Time Associated Diagnosis Comments DERMATOPATHOLOGY Routine 06/03/2023 2:40 PM CDT documented in this encounter Results * DERMATOPATHOLOGY (06/03/2023 2:40 PM CDT) Case Report Dermatopathology Report Case: [id number] Authorizing Provider: Yolanda Pimentel MD Collected: 06/03/2023 02:40 PM Ordering Location: [facility] Physician [facility] - Received: 06/04/2023 12:10 PM DermPath Lab Pathologist: Vanessa Adames MD Specimen: Skin, rigfht abdomen 2:59 PM CDT DERMATOPATHOLOGY LABORATORY Final Diagnosis Specimen A. SKIN, rigfht abdomen: BASAL CELL CARCINOMA (C44.519) NOT PRESENT AT MARGIN DERMAL SCAR (L90.5) 2:59 PM CDT DERMATOPATHOLOGY LABORATORY at 1459 CDT Clinical History Proven BCC. 4 2:59 PM CDT DERMATOPATHOLOGY LABORATORY Gross Description Specimen A: Received is one formalin filled container labeled with the patient's name and designated rigfht abdomen. The specimen consists of a non-oriented ellipse of skin measuring 87c80p0 mm. The epidermal surface is unremarkable. The margin is inked green. The 12 o'clock and 6 o'clock tips are submitted in cassette 1. The remainder of the ellipse is serially sectioned and submitted in cassette 2-3. Jar 0. 2:59 PM CDT DERMATOPATHOLOGY LABORATORY Microscopic Description Specimen A. SKIN, rigfht abdomen: Within the dermis there are aggregates of basaloid cells with a high nuclear to cytoplasmic ratio and peripheral palisading. This lesion is not present at the margin of the specimen. There are fibroblasts and collagen bundles oriented parallel to the skin surface with elongated blood vessels, some of which are oriented perpendicular to the skin surface. 2:59 PM CDT DERMATOPATHOLOGY LABORATORY Disclaimer An external and internal positive and negative controls are appropriate for the histochemical, immunohistochemical and immunofluorescence stain(s) in this case (if any), except where stated explicitly. The performance characteristics of the stain(s) cited in this report were developed and its performance characteristic determined by the Dermatopathology Laboratory at [facility], directed by Dr. Usha Weller. These tests need not be, and therefore are not, approved by the [place] Food and Drug Administration. The tests are used for clinical purposes. Billing Codes Specimen Charges Stain Charges 57065 1 2:59 PM CDT DERMATOPATHOLOGY LABORATORY Embedded Images 2:59 PM CDT DERMATOPATHOLOGY LABORATORY Pathology/Cytolo gy TISSUE SPECIMEN FROM SKIN / Unknown 06/03/2023 2:40 PM CDT 06/04/2023 12:10 PM CDT us Yolanda Pimentel MD LAB - PATHOLOGY/CYTOLOGY ORD ERABLES Final Result DERMATOPATHOLOGY LABORATORY [facility] - Department of Dermatology [address], [address] [phone] documented in this encounter Visit Diagnoses Not on filedocumented in this encounter
--- OUTSIDE RECORDS SUMMARY | 2024-12-31 18:40 | XMS_ITS | Encounter Summary ---
Author Organization [facility] Address [address] [place] [address] Care Team Providers Care Drawer In Name Role Phone Unavailable Primary Care Provider Unavailabl e Encounter Details Date Type Department Care Team (Late st Contact Info) Description 04/23/2023 Lab Requisition [facility] - DermPath Lab [address] [facility] [place] [address] Anisa Mckeon MD [address] [facility] [address] [place] [address] Social History Tobacco Use Types Packs/Day Years Used Date Smoking Tobacco: Never Assessed Comments Unknown Sex and Gender Information Value Date Recorded Sex Assigned at Not on file Legal Sex Female 10:35 AM GRINDER SET UP OPERATOR UNIVERSAL Gender Identity Not on file Sexual Orientation Not on file documented as of this encounter Plan of Treatment Not on file documented as of this encounter Procedures Procedure Name Priority Date/Time Associated Diagnosis Comments DERMATOPATHOLOGY Routine 04/23/2023 10:2 0 AM GRINDER SET UP OPERATOR UNIVERSAL documented in this encounter Results * DERMATOPATHOLOGY (04/23/2023 10:20 AM GRINDER SET UP OPERATOR UNIVERSAL) Case Report Dermatopathology Report Case: [id number] Authorizing Provider: Anisa Mckeon MD Collected: 04/23/2023 10:20 AM Ordering Location: [facility] Derm[facility] Lab Received: 04/24/2023 02:01 PM Pathologist: Kate Celestin MD Specimen: Skin, right abdomen 10:44 AM GRINDER SET UP OPERATOR UNIVERSAL DERMATOPATHOLOGY LABORATORY Final Diagnosis Specimen A. SKIN, right abdomen: BASAL CELL CARCINOMA, NODULAR TYPE (C44.519) 4 10:44 AM GRINDER SET UP OPERATOR UNIVERSAL DERMATOPATHOLOGY LABORATORY at 1044 GRINDER SET UP OPERATOR UNIVERSAL Clinical History R/O SCC Growing Non-Healing 10:44 AM [facility] DERMATOPATHOLOGY LABORATORY Gross Description Specimen A: Received is one formalin filled container labeled with the patient's name and designated right abdomen. The specimen consists of a shave biopsy measuring 6x6x1 mm. Jar 0. 10:44 AM [facility] DERMATOPATHOLOGY LABORATORY Microscopic Description Specimen A. SKIN, right abdomen: Within the dermis there are aggregates of basaloid cells with a high nuclear to cytoplasmic ratio and peripheral palisading. 10:44 AM [facility] DERMATOPATHOLOGY LABORATORY Disclaimer An external and internal positive and negative controls are appropriate for the histochemical, immunohistochemical and immunofluorescence stain(s) in this case (if any), except where stated explicitly. The performance characteristics of the stain(s) cited in this report were developed and its performance characteristic determined by the Dermatopathology Laboratory at [facility], directed by Dr. Usha Weller. These tests need not be, and therefore are not, approved by the [place] Food and Drug Administration. The tests are used for clinical purposes. Billing Codes Specimen Charges Stain Charges 25024 1 10:44 AM [facility] DERMATOPATHOLOGY LABORATORY Embedded Images 10:44 AM [facility] DERMATOPATHOLOGY LABORATORY Pathology/Cytolo gy TISSUE SPECIMEN FROM SKIN / Unknown 04/23/2023 10:20 AM GRINDER SET UP OPERATOR UNIVERSAL 04/24/2023 2:01 PM [facility] Anisa Mckeon MD LAB - PATHOLOGY/CYTOLOGY OR DERABLES Final Result DERMATOPATHOLOGY LABORATORY [facility] - Department of Dermatology [address] [phone] documented in this encounter Visit Diagnoses Not on filedocumented in this encounter
--- OUTSIDE RECORDS SUMMARY | 2024-12-31 19:36 | XMS_ITS | Clinical Summary ---
Author Organization [facility] Address [address] [place] [address] Care Team Providers Care Wash Worker Name Role Phone Unavailable Primary Care Provider Unavailabl e Source Comments [facility],non-owned Affiliates and Associated Physician Practices is amultiple site organization consisting of ambulatory clinics and hospital sitesin [place], [place], [place] and [place]. This disclosure is being madepursuant to the Care Everywhere program and may not contain all information available regarding this patient. Last updated 17.[facility] Social History Tobacco Use Types Packs/Day Years Used Date Smoking Tobacco: Never Assessed Comments Unknown Sex and Gender Information Value Date Recorded Sex Assigned at Not on file Legal Sex Female 10:35 AM DIRECTOR OF MANAGED CARE Gender Identity Not on file Sexual Orientation [...] age to complete this topic Insurance MEDICARE [facility]
--- OUTSIDE RECORDS SUMMARY | 2024-12-31 19:36 | XMS_ITS | Clinical Summary ---
Author Organization [facility] Address [address] [place] [address] Phone Care Team Providers Care Field Crop Grower Name Role Phone Long Buckley MD Primary Care Provider [phone] Medications diclofenac sodium (VOLTAREN ORAL) Take by [...] on file Legal Sex Female 12:46 PM CHEMICAL PLANT WORKER Gender Identity Not on file Sexual Orientation Not on file Last Filed Vital Signs Vital Sign Reading Time Taken Comments Blood Pressure 114/69 01/25/2018 3:00 PM CHEMICAL PLANT WORKER Pulse 83 01/25/2018 3:00 PM CHEMICAL PLANT WORKER Temperature - - Respiratory Rate 18 01/25/2018 12:53 PM CHEMICAL PLANT WORKER Oxygen Saturation 91% 01/25/2018 3:00 PM CHEMICAL PLANT WORKER Inhaled Oxygen Concentration - - Weight 63.5 kg (140 lb) 01/25/2018 12:53 PM CHEMICAL PLANT WORKER Height 170.2 cm (5' 7) 01/25/2018 12:53 PM CHEMICAL PLANT WORKER Body Mass Index 21.93 01/25/2018 12:53 PM CHEMICAL PLANT WORKER Plan of Treatment Health Maintenance Due Date [...] Insurance [employer] CHOICE POS II Care Teams Field Crop Grower Relationship Specialty Start Date End Date Long Buckley MD [address] [place] [phone] PCP - General Internal Medicine 01/25/18
--- OUTSIDE RECORDS SUMMARY | 2024-12-31 19:36 | XMS_ITS | Clinical Summary ---
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 Overview (11/25/2019): Added automatically from request for surgery [id number] Right shoulder pain 11/04/2019 Overview (11/04/2019): Added automatically from request for surgery [id number] Osteopenia after menopause 09/16/2018 Other constipation 02/14/2017 Assessment & Plan (02/14/2017 2:30 PM TURKEY EGG GATHERER): This is a chronic issue that has [...] acid Assessment & Plan (02/14/2017 2:27 PM TURKEY EGG GATHERER): She is taking a daily PPI, which [...] (03/07/2022): Added automatically from request for surgery [id number] Wound dehiscence 01/08/2022 10/17/2023 Overview (01/08/2022): Added automatically from request for surgery [id number] Right lower lobe pneumonia 09/16/2018 0 04/15/2019 Closed displaced comminuted fracture of shaft of right humerus 08/27/2018 04/15/2019 Overview (08/27/2018): Added automatically from request for surgery [id number] Bloating 02/14/2017 04/11/2017 Assessment & Plan (02/14/2017 2:28 PM TURKEY EGG GATHERER): This could be related to her constipation issues, but we will check for h.pylori during her EGD. Heartburn 02/14/2017 02/14/2017 Screening for colon cancer 02/14/2017 0 10/17/2023 Assessment & Plan (02/14/2017 2:31 PM TURKEY EGG GATHERER): She has never had screening colonoscopy, so we should screen for colorectal cancer. No family history of colon cancer. Sore throat 11/30/2016 04/11/2017 Assessment & Plan (02/14/2017 2:24 PM TURKEY EGG GATHERER): This is likely related to recent acute [...] Department Care Team Description 10/14/2024 Orders Only [facility] Primary Care at [address] [place] [address] Long Buckley MD 10/13/2024 3:50 PM CDT - 10/13/2024 11:59 PM CDT Hospital Encounter [facility] [address] [place] [address] Discharge Disposition: Discharge to home or self care 10/13/2024 3:30 PM CDT Office Visit [facility] [place] ([facility]) - [facility] [address] [place] [address] Lashanda Devi MD Left foot [...] on file Legal Sex Female 11:53 PM TURKEY EGG GATHERER Gender Identity Not on file Sexual Orientation [...] Discontinued 03/11/2024 Medical Devices Implanted Type Area Ship Scaler Device Identifier Shelf Expiration Date Model / Serial / Lot [employer]nee [employer] 6191-1-010 Simplex P Radiopaque Full Dose Cement Bone Sterile - [id number] Implanted:Qty: 1 on 09/09/2018 by Steffen Lombardi MD at [facility] Bone Cement Right: Shoulder [employer] 09/24/2020 6191-1-010 / / [id number] Breast Breast Bilateral : Breast Allosource [id number] Freeze Dried Chips 4-10mm Graft 30ml Bone Cancellous - [id number] Implanted:Qty: 1 on 05/06/2018 by Steffen Lombardi MD at [facility] Right: Humerus Allosource 02/05/2022 [id number] / / [id number] Synthes 241.901 Lcp Combi Philos 75g26z5.5mm 3 Hole Shaft Lock Compression - [id number] Implanted:Qty: 1 on 05/06/2018 by Steffen Lombardi MD at [facility] Right: Humerus Synthes I 241.901 / / Synthes 204.830 3.5mm 6mm 30mm 2.5mm Self Tap Small Hexagonal Socket Low Profile - [id number] Implanted:Qty: 1 on 05/06/2018 by Steffen Lombardi MD at [facility] Right: Humerus Synthes I 204.830 / / Synthes 212.117 3.5mm 2.9mm 40mm Self Tap Lock Stardrive Conical Head T15 Full - [id number] Implanted:Qty: 3 on 05/06/2018 by Steffen Lombardi MD at [facility] Right: Humerus Synthes I 212.117 / / Synthes 212.118 3.5mm 2.9mm 42mm Self Tap Lock Stardrive Conical Head Full Thread - [id number] Implanted:Qty: 2 on 05/06/2018 by Steffen Lombardi MD at [facility] Right: Humerus Synthes I 212.118 / / Synthes 212.119 3.5mm 2.9mm 45mm Self Tap Lock Stardrive Conical Head T15 Full - [id number] Implanted:Qty: 1 on 05/06/2018 by Steffen Lombardi MD at [facility] Right: Humerus Synthes I 212.119 / / Synthes 212.109 3.5mm 2.9mm 26mm Self Tap Lock Stardrive Conical Head T15 Full - [id number] Implanted:Qty: 2 on 05/06/2018 by Steffen Lombardi MD at [facility] Right: Humerus Synthes I 212.109 / / Synthes 02.212.056 3.5mm 56mm Self Tap Lock Stardrive T15 Full Thread Screw Bone - [id number] Implanted:Qty: 1 on 05/06/2018 by Steffen Lombardi MD at [facility] Right: Humerus Synthes I 02.212.056 / / Synthes 212.121 3.5mm 2.9mm 50mm Self Tap Lock Stardrive Conical Head T15 Full - [id number] Implanted:Qty: 1 on 05/06/2018 by Steffen Lombardi MD at [facility] Right: Humerus Synthes I 212.121 / / Depuy Orthopaedics Inc [id number] Delta Xtend 27mm Cementless Shoulder Standard Component Glenoid Latex Free - [id number] Implanted:Qty: 1 on 09/09/2018 by Steffen Lombardi MD at [facility] Right: Shoulder Depuy Orthopaedics Inc [id number] 05/26/2023 [id number] / / [id number] Depuy Orthopaedics Inc [id number] Delta Xtend 4.5mm 36mm Lock Shoulder Glenoid Screw Bone Metaglene - [id number] Implanted:Qty: 1 on 09/09/2018 by Steffen Lombardi MD at [facility] Right: Shoulder Depuy Orthopaedics Inc [id number] 04/25/2023 [id number] / / [id number] Depuy Orthopaedics Inc [id number] Delta Xtend 4.5mm 36mm Lock Shoulder Glenoid Screw Bone Metaglene - [id number] Implanted:Qty: 1 on 09/09/2018 by Steffen Lombardi MD at [facility] Right: Shoulder Depuy Orthopaed[employer] Inc [id number] 05/26/2023 [id number] / / [id number] Depuy Orthopaedics Inc [id number] Delta Xtend 38mm Glenosphere Shoulder Eccentric Component Glenoid Latex Free - [id number] Implanted:Qty: 1 on 09/09/2018 by Steffen Lombardi MD at [facility] Right: Shoulder Dep[employer] Orthopaedics Inc [id number] 05/26/2023 [id number] / / [id number] Depuy Orthopaedics Inc 945133969 Delta Xtend 4.5mm 18mm Shoulder Glenoid Screw Bone Metaglene - [id number] Implanted:Qty: 1 on 09/09/2018 by Steffen Lombardi MD at [facility] Right: Shoulder Depuy Orthopaedics Inc [id number] 04/25/2023 [id number] / / [id number] Depuy Orthopaedics Inc [id number] Delta Xtend 4.5mm 18mm Shoulder Glenoid Screw Bone Metaglene - [id number] Implanted:Qty: 1 on 09/09/2018 by Steffen Lombardi MD at [facility] Right: Shoulder Dep[employer] Orthopaed[employer] Inc [id number] 05/26/2023 [id number] / / [id number] Depuy Orthopaedics Inc [id number] Delta Xtend 8mm Cemented Monobloc Shoulder Epiphysis 1 Standard Latex Free - [id number] Implanted:Qty: 1 on 09/09/2018 by Steffen Lombardi MD at [facility] Right: Shoulder Dep[employer] Orthopaedics Inc [id number] 10/25/2022 [id number] / / [id number] Depuy Orthopaedics Inc [id number] 10.75mm Hip Femoral 2 Restrictor Cement Polyethylene Sterile - [id number] Implanted:Qty: 1 on 09/09/2018 by Steffen Lombardi MD at [facility] Right: Shoulder Dep[employer] Orthopaedics Inc [id number] 12/25/2022 [id number] / / [id number] Depuy Orthopaedics Inc [id number] Delta Xtend 38mm Shoulder +3mm Standard Cup Humeral Polyethylene Latex Free - [id number] Implanted:Qty: 1 on 09/09/2018 by Steffen Lombardi MD at [facility] Right: Shoulder Dep[employer] Orthopaed[employer] Inc [id number] 05/25/2022 [id number] / / [id number] Depuy Orthopaedics Inc [id number] Global Unite 8mm 177mm Modular Shoulder Long Stem Humeral - [id number] Implanted:Qty: 1 on 12/08/2019 by Tee Layne MD at [facility] Right: Shoulder [employer] Orthopaed[employer] Inc [id number] / / [employer] Simplex P Radiopaque Full Dose Cement Bone Sterile - [id number] Implanted:Qty: 1 on 12/08/2019 by Tee Layne MD at [facility] Right: Shoulder [employer] [id number] / / Ca Orthopaedics Simplex P Radiopaque Full Dose Cement Bone Sterile - [id number] Implanted:Qty: 1 on 12/08/2019 by Tee Layne MD at [facility] Right: Shoulder Ca Orthopaedics [id number] / / Tornier Inc [id number] Latitude 8-15mm Restrictor Elbow Restrictor Cement - [id number] - [id number] Implanted:Qty: 1 on 12/08/2019 by Tee Layne MD at [facility] Right: Shoulder c-crowd Inc [id number] 09/10/2024 GLA617 / [id number] / Depuy Orthopaedics Inc [id number] Delta Xtend 38mm Shoulder +6mm Standard Cup Humeral Polyethylene Latex Free - [id number] Implanted:Qty: 1 on 12/08/2019 by Tee Layne MD at [facility] Right: Shoulder [employer]uy Orthopaedics Inc [id number] 06/25/2023 [id number] / / [id number] Depuy Orthopaedics Inc [id number] Implant Shldr Xtend Mod Awa 155epi Por Sz1 - [id number] Implanted:Qty: 1 on 12/08/2019 by Tee Layne MD at [facility] Right: Shoulder [employer] Orthopaedics Inc [id number] 08/24/2029 [id number] / / [employer] Llc Remedy 10.5mm 116mm 12.6x10.5mm Modular Shoulder 19mm Medium Stem Rshsmd - [id number] Implanted:Qty: 1 on 12/19/2021 by Tee Layne MD at [facility] Right: Shoulder [employer]STE[employer] LLC 01/24/2026 RSHSMD / / [id number] [employer] Remedy 45mm 25mm Modular Shoulder Head Humeral Pmma Gentamicin Rshhmd - [id number] Implanted:Qty: 1 on 12/19/2021 by Tee Layne MD at [facility] Right: Shoulder [employer] LLC 01/24/2026 [facility] / / [id number] Herae[employer] Inc Palacos R High Viscosity Cement 40gm Bone Green 9552489 - [id number] Implanted:Qty: 1 on 12/19/2021 by Tee Layne MD at [facility] Right: Shoulder [employer] [id number] 10/25/2025 3212981 / / [id number] [employer] Palacos R High Viscosity Cement 40gm Bone Green 5263050 - [id number] Implanted:Qty: 1 on 01/09/2022 by Tee Layne MD at [facility] Right: Shoulder [employer] Inc 02/24/2026 7010576 / / [id number] [employer] Inc Palacos R High Viscosity Cement 40gm Bone Green 7860391 - [id number] Implanted:Qty: 1 on 01/09/2022 by Tee Layne MD at [facility] Right: Shoulder [employer] Inc 02/24/2026 0124558 / / [id number] [employer] Remedy 40mm 25mm Modular Shoulder Head Humeral Pmma Gentamicin Rshhsm - [id number] Implanted:Qty: 1 on 01/09/2022 by Tee Layne MD at [facility] Right: Shoulder [employer] 11/24/2025 [facility] / / [id number] [employer] Remedy 10.5mm 116mm 12.6x10.5mm Modular Shoulder 19mm Medium Stem Rsmd - [id number] Implanted:Qty: 1 on 01/09/2022 by Tee Layne MD at [facility] Right: Shoulder [employer] LLC 01/24/2026 RSMD / / [id number] The [employer] Inc Tornier Aequalis Perform 15mm Press Fit Long Post Shoulder Uru401 - [id number] Implanted:Qty: 1 on 04/05/2022 by Oracio Cortez MD at [facility] Right: Shoulder [employer] 08/30/2026 GQQ102 / / [id number] [employer] Tornier Aequalis Perform 25mm Lateralize Augment Reverse Shoulder Bjx552 - [id number] Implanted:Qty: 1 on 04/05/2022 by Oracio Cortez MD at [facility] Right: Shoulder [employer]Tap [employer] Inc 2026 IKD404 / / [id number] Musculoskeletal Transplant Graft Bone Whole Bone Humerus Proximal With Cuff [facility] 007365 - [id number] - [id number] Implanted:Qty: 1 on 04/05/2022 by Oracio Cortez MD at [facility] Right: Shoulder Musculoskeletal Transplant 05/13/2026 600398 / [id number] / [id number] Description:COMPANY IS-MTF B IOLbenchee PROD CODE 667981 [employer] Let Aequalis Perform Reversed 5mm 14mm Peripheral Glenoid Screw Yye226 - [id number] Implanted:Qty: 2 on 04/05/2022 by Oracio Cortez MD at [facility] Right: Shoulder [employer] Inc WBY242 / / FlagTap [employer] Inc Aequalis Perform Reversed 5mm 26mm Peripheral Glenoid Screw Rjr848 - [id number] Implanted:Qty: 1 on 04/05/2022 by Oracio Cortez MD at [facility] Right: Shoulder [employer] WJB033 / / Rojas Medical [employer] Inc Aequalis Perform Reversed 5mm 30mm Peripheral Glenoid Screw Lyp934 - [id number] Implanted:Qty: 1 on 04/05/2022 by Oracio Cortez MD at [facility] Right: Shoulder [employer] VJZ297 / / c-crowd Inc Latitude 8-15mm Restrictor Elbow Restrictor Cement Qpf906 - [id number] Implanted:Qty: 1 on 04/05/2022 by Oracio Cortez MD at [facility] Right: Shoulder c-crowd Inc 12/07/2026 MRV063 / / [id number] [employer] Simplex P Radiopaque Full Dose Cement Bone Sterile 6191-1-010 - [id number] Implanted:Qty: 1 on 04/05/2022 by Oracio Cortez MD at [facility] Right: Shoulder Ca [employer]ics 08/25/2023 6191-1-010 / / [id number] [employer] Simplex P Radiopaque Full Dose Cement Bone Sterile 6191-1-010 - [id number] Implanted:Qty: 1 on 04/05/2022 by Oracio Cortez MD at [facility] Right: Shoulder Ca [employer]edics 04/25/2023 6191-1-010 / / [id number] MedCPU Tornier Aequalis Perform Od36 Mm Reverse Shoulder +2 Mm Inferior Offset Sphere Glenoid Iee054 - [id number] Implanted:Qty: 1 on 04/05/2022 by Oracio Cortez MD at [facility] Right: Shoulder c-crowd Inc 11/21/2026 WEX646 / / [id number] Karlee Biomet Inc 10mm 130mm Shoulder Stem Humeral Trabecular Metal Tivanium [id number] - [id number] Implanted:Qty: 1 on 04/05/2022 by Oracio Cortez MD at [facility] Right: Shoulder [employer] Inc 01/02/2032 [id number] / / [id number] Arthrex Inc Fibertape Cerclage Suture Nonabsorbable Sterile Ar-7267 - [id number] Implanted:Qty: 1 on 04/05/2022 by Oracio Cortez MD at [facility] Right: Shoulder Arthrex Inc 10/25/2024 AR-7267 / / [id number] Arthrex Inc Arthrex Suturetape Tigerlink 1.3mm Suture Nonabsorbable Latex Ar-7535t - [id number] Implanted:Qty: 1 on 04/05/2022 by Oracio Cortez MD at [facility] Right: Shoulder Arthrex Inc 04/24/2026 AR-7535T / / [id number] Description:THIS IS A SUTURE Synthes Lcp Combi 782y16j0.4mm 14 Hole Limit Contact Taper End Plate Bone 223.641 - [id number] Implanted:Qty: 1 on 04/05/2022 by Oracio Cortez MD at [facility] Right: Shoulder Synthes I 223.641 / / Description:223.641 flagged 04/09 Synthes 3.5mm 6mm 26mm 2.5mm Self Tap Small Hexagonal Socket Low Profile 204.826 - [id number] Implanted:Qty: 1 on 04/05/2022 by Oracio Cortez MD at [facility] Right: Shoulder Synthes I 204.826 / / Synthes 3.5mm 2.9mm 34mm Self Tap Lock Stardrive Conical Head Pelvis T15 212.113 - [id number] Implanted:Qty: 2 on 04/05/2022 by Oracio Cortez MD at [facility] Right: Shoulder Synthes I 212.113 / / Synthes 3.5mm 2.9mm 26mm Self Tap Lock Stardrive Conical Head T15 Full 212.109 - [id number] Implanted:Qty: 3 on 04/05/2022 by Oracio Cortez MD at [facility] Right: Shoulder Synthes I 212.109 / / Synthes 3.5mm 2.9mm 10mm Self Tap Lock Stardrive Conical Head T15 Full 212.101 - [id number] Implanted:Qty: 2 on 04/05/2022 by Oracio Cortez MD at [facility] Right: Shoulder Synthes I 212.101 / / Karlee [employer] Inc 36mm H+6mm Reverse Retentive Humerus 12d 65d Liner Shoulder [id number] - [id number] Implanted:Qty: 1 on 04/05/2022 by Oracio Cortez MD at [facility] Right: Shoulder [employer]lee [employer] Inc [id number] 07/17/2028 [id number] / / [id number] Synthes 3.5mm 2.9mm 24mm Self Tap Lock Stardrive Conical Head Pelvis T15 212.108 - [id number] Implanted:Qty: 2 on 04/05/2022 by Oracio Cortez MD at [facility] Right: Shoulder Synthes I 212.108 / / Sientra Inc Implant Breast Round Moderate Profile Smooth Opus Luxe 350cc Gel 09725-489ya - [id number] - [id number] Implanted:Qty: 1 on 06/16/2024 at [facility] Left: Breast Sientra Inc 03/07/2029 47623-880AL / [id number] / Sientra Inc Implant Breast Round Moderate Profile Smooth Opus Luxe 350cc Gel 20208-329gq - [id number] - [id number] Implanted:Qty: 1 on 06/16/2024 at [facility] Right: Breast Sientra Inc 05/05/2029 89559-877AO / [id number] / Explanted Type Area Ship Scaler Device Identifier Shelf Expiration Date Model / Serial / Lot Saline Breast Implant Explanted:Qty : 1 on 06/16/2024 by Florencia Nagy MD at [facility] Breast Right: Breast [employer] DUP UNKNOWN / / [id number] Description:RUPTURED Saline Breast Implant Explanted:Qty : 1 on 06/16/2024 by Florencia Nagy MD at [facility] Breast Left: Breast [employer] DUP UNKNOWN / / [id number] Synthes 292.12 Chandan 1.25mm 150mm Trocar Tip Wire Fixation Stainless Steel - [id number] Explanted:Qty : 1 on 05/06/2018 at [facility] Right: Humerus Synthes I 292.12 / / Procedures Procedure Name Priority Date/Time Associated Diagnosis Comments XR FOOT LEFT 3 OR MORE VIEWS Schedule Routine, Read Routine (OP Routine) 10/13/2024 3:56 PM CDT Left foot pain PAP, REFLEX HPV Routine 03/11/2024 11:41 AM TURKEY EGG GATHERER Cervical cancer screening DIAGNOSTIC MAMMOGRAM BILATERAL W [...] * Pap, reflex HPV (03/11/2024 11:41 AM TURKEY EGG GATHERER) Clinical indication Comment [facility] - 01 Comment: NEGATIVE FOR INTRAEPITHELIAL LESION OR MALIGNANCY. CELLULAR CHANGES ASSOCIATED WITH ATROPHY ARE PRESENT. Specimen adequacy: Comment [facility] - 01 Comment: Satisfactory for evaluation. Endocervical component may not be distinguished in cases of atrophy. Clinician provided ICD10 Comment [facility] - Comment:Z12.4 Performed by Comment [facility] - 01 Comment:Steven Armstrong totechnologist ([facility]) . . [facility] - 01 Note: Comment [...] performed. Thin prep 03/11/2024 11:4 1 AM TURKEY EGG GATHERER 03/11/2024 Narrative [facility] - 03/13/2024 4:10 PM TURKEY EGG GATHERER Performed at: - [address] [id number] Seat Mender: Christina Villegas MD, Phone: [phone] Specimen Comment: Source.............Cervix;Endocervix Specimen Comment: No. of containers..01 ThinPrep Vial us Teena Solo MD LAB CYTOLOGY ORDERAB LES Final Result [facility] - * Diagnostic Mammogram Bilateral w [...] Recently Relevant to Health Maintenance Insurance [facility]IC[facility] AAR AARP MEDICARE Advance Directives For more information, please contact: [phone] * Full Code (Latest Code Status on [...] 2:43 PM 09/11/2018 4:24 PM Care Teams Skin Former Relationship Specialty Start Date End Date Long Buckley MD PCP - [facility] [address] [place] [address] Referring Physician Plastic Surgery 10/17/23 Teena Solo MD [address] [place] [address] Consulting Physician Obstetrics and Gynecology 04/23/24
--- OUTSIDE RECORDS SUMMARY | 2024-12-31 19:36 | XMS_ITS | Encounter Summary ---
Author Organization [facility] Address [address] [place] [address] Phone Care Team Providers Care Tire Center Supervisor Name Role Phone Long Buckley MD Primary Care Provider Trenton Collado PT Unavailable Unavailab Long Cardenas PT Unavailable [phone] Suhail Musa MD Unavailable [phone] Teena Solo MD Unavailable [phone] Encounter Details Date Type Department Care Team (Late st Contact Info) Description 05/31/2021 Orders Only [facility] [phone] Scanning, Provider Social History Tobacco Use Types [...] on file 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 Gender Identity Not on file Sexual Orientation [...] on filedocumented in this encounter Care Teams Tire Center Supervisor Relationship Specialty Start Date End Date Long Buckley MD PCP - General 05/25/16 Trenton Collado, PT Physical Therapist Physical Therapy 08/02/21 06/02/22 [place] [address] [place] [address] Physical Therapist Physical Therapy 06/03/22 02/12/23 Suhail Musa MD [address] [place] [address] Referring Physician Plastic Surgery 10/17/23 Teena Solo MD [address] [place] [address] Consulting Physician Obstetrics and Gynecology 04/23/24 documented as of this encounter
--- OUTSIDE RECORDS SUMMARY | 2024-12-31 19:36 | XMS_ITS | Encounter Summary ---
Author Organization [facility] Address [address] [place] [address] Care Team Providers Care Rubber Goods Repairer Name Role Phone Long Buckley MD Primary Care Provider Long Buckley MD Primary Care Provider Long Buckley MD Primary Care Provider Long Buckley MD Primary Care Provider Trenton Collado PT Unavailable Unavailab Long Cardenas PT Unavailable [phone] Suhail Musa MD Unavailable Teena Solo MD Unavailable [phone] Encounter Details Date Type Department Care Team (Late st Contact Info) Description 08/22/2010 Orders Only [facility] [address] [place] [address] Long Buckley MD [address] [place] [address] [address] [place] [address] Social History Tobacco Use Types Packs/Day Years Used Date Smoking Tobacco: Never Assessed Comments Unknown Sex and Gender Information Value Date Recorded Sex Assigned at Not on file 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 Gender Identity Not on file Sexual Orientation [...] on filedocumented in this encounter Care Teams Rubber Goods Repairer Relationship Specialty Start Date End Date Long Buckley MD PCP - General 05/25/16 Long Buckley MD PCP - General 04/19/16 05/24/16 Long Buckley MD PCP - General 09/18/11 04/18/16 Long Buckley MD PCP - General 08/08/06 09/17/11 Trenton Collado, PT Physical Therapist Physical Therapy 08/02/21 06/02/22 [place] [address] [place] [address] Physical Therapist Physical Therapy 06/03/22 02/12/23 Suhail Musa MD [address] [place] [address] Referring Physician Plastic Surgery 10/17/23 Teena Solo MD [address] [place] [address] Consulting Physician Obstetrics and Gynecology 04/23/24 documented as of this encounter
--- OUTSIDE RECORDS SUMMARY | 2024-12-31 19:36 | XMS_ITS | Encounter Summary ---
Author Organization [facility] Address [address] [place] [address] Care Team Providers Care Registrar Museum Name Role Phone Unavailable Primary Care Provider Unavailabl e Encounter Details Date Type Department Care Team (Late st Contact Info) Description 06/03/2023 Lab Requisition [facility] - DermPath Lab [address] [facility] [place] [address] Yolanda Pimentel MD [address] [facility] [address] [place] [address] Social History Tobacco Use Types Packs/Day Years Used Date Smoking Tobacco: Never Assessed Comments Unknown Sex and Gender Information Value Date Recorded Sex Assigned at Not on file 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 Gender Identity Not on file Sexual Orientation Not on file documented as of this encounter Plan of Treatment Not on file documented as of this encounter Procedures Procedure Name Priority Date/Time Associated Diagnosis Comments DERMATOPATHOLOGY Routine 06/03/2023 2:40 PM CDT documented in this encounter Results * DERMATOPATHOLOGY (06/03/2023 2:40 PM CDT) Case Report Dermatopathology Report Case: [id number] Authorizing Provider: Yolanda Pimentel MD Collected: 06/03/2023 02:40 PM Ordering Location: [facility] Physician [facility] - Received: 06/04/2023 12:10 PM DermPath Lab [...] of a non-oriented ellipse of skin measuring 12n04i0 mm. The epidermal surface is unremarkable. The [...] characteristic determined by the Dermatopathology Laboratory at [facility], directed by Dr. Usha Weller. These tests need not be, and therefore are not, approved by the [place] Food and Drug Administration. The tests are used for clinical purposes. Billing Codes Specimen Charges Stain Charges 59855 1 2:59 PM CDT DERMATOPATHOLOGY LABORATORY Embedded Images 2:59 PM CDT DERMATOPATHOLOGY LABORATORY Pathology/Cytolo gy TISSUE SPECIMEN FROM SKIN / Unknown 06/03/2023 2:40 PM CDT 06/04/2023 12:10 PM CDT us Yolanda Pimentel MD LAB - PATHOLOGY/CYTOLOGY ORD ERABLES Final Result DERMATOPATHOLOGY LABORATORY [facility] - Department of Dermatology [address], [address] [phone] documented in this encounter Visit Diagnoses Not on filedocumented in this encounter
--- OUTSIDE RECORDS SUMMARY | 2024-12-31 19:36 | XMS_ITS ---
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 Overview (11/25/2019): Added automatically from request for surgery [id number] Right shoulder pain 11/04/2019 Overview (11/04/2019): Added automatically from request for surgery [id number] Osteopenia after menopause 09/16/2018 Other constipation 02/14/2017 Assessment & Plan (02/14/2017 2:30 PM DIRECTOR OF CARDIOLOGY): This is a chronic issue that has [...] & Plan (02/14/2017 2:27 PM DIRECTOR OF CARDIOLOGY): She is taking a daily PPI, which [...] (03/07/2022): Added automatically from request for surgery [id number] Wound dehiscence 01/08/2022 10/17/2023 Overview (01/08/2022): Added automatically from request for surgery [id number] Right lower lobe pneumonia 09/16/2018 0 04/15/2019 Closed displaced comminuted fracture of shaft of right humerus 08/27/2018 04/15/2019 Overview (08/27/2018): Added automatically from request for surgery [id number] Bloating 02/14/2017 04/11/2017 Assessment & Plan (02/14/2017 2:28 PM DIRECTOR OF CARDIOLOGY): This could be related to her constipation issues, but we will check for h.pylori during her EGD. Heartburn 02/14/2017 02/14/2017 Screening for colon cancer 02/14/2017 0 10/17/2023 Assessment & Plan (02/14/2017 2:31 PM DIRECTOR OF CARDIOLOGY): She has never had screening colonoscopy, so we should screen for colorectal cancer. No family history of colon cancer. Sore throat 11/30/2016 04/11/2017 Assessment & Plan (02/14/2017 2:24 PM DIRECTOR OF CARDIOLOGY): This is likely related to recent acute [...]
--- OUTSIDE RECORDS SUMMARY | 2024-12-31 19:36 | XMS_ITS | Encounter Summary ---
Author Organization [facility] Address [address] [place] [address] Phone Care Team Providers Care Yarn Preparation Supervisor Name Role Phone Long Buckley MD Primary Care Provider Trenton Collado PT Unavailable Unavailab Long Cardenas PT Unavailable [phone] Suhail Musa MD Unavailable [phone] Teena Solo MD Unavailable [phone] Encounter Details Date Type Department Care Team (Late st Contact Info) Description 03/22/2021 Orders Only [facility]R [phone] Scanning, Provider Social History Tobacco Use Types [...] on file 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 Gender Identity Not on file Sexual [...] on filedocumented in this encounter Care Teams Yarn Preparation Supervisor Relationship Specialty Start Date End Date Long Buckley MD PCP - General 05/25/16 Trenton Collado, PT Physical Therapist Physical Therapy 08/02/21 06/02/22 [place] [address] [place] [address] Physical Therapist Physical Therapy 06/03/22 02/12/23 Suhail Musa MD [address] [place] [address] Referring Physician Plastic Surgery 10/17/23 Teena Solo MD [address] [place] [address] Consulting Physician Obstetrics and Gynecology 04/23/24 documented as of this encounter
--- OUTSIDE RECORDS SUMMARY | 2024-12-31 19:36 | XMS_ITS | Encounter Summary ---
Author Organization [facility] Address [address] [place] [address] Care Team Providers Care General Clerk Name Role Phone Unavailable Primary Care Provider Unavailabl e Encounter Details Date Type Department Care Team (Late st Contact Info) Description 04/23/2023 Lab Requisition [facility] - DermPath Lab [address] [facility] [place] [address] Anisa Mckeon MD [address] [facility] [address] [place] [address] Social History Tobacco Use Types Packs/Day Years Used Date Smoking Tobacco: Never Assessed Comments Unknown Sex and Gender Information Value Date Recorded Sex Assigned at Not on file Legal Sex Female 10:35 AM SHORTS [employer] Gender Identity Not on file Sexual Orientation Not on file documented as of this encounter Plan of Treatment Not on file documented as of this encounter Procedures Procedure Name Priority Date/Time Associated Diagnosis Comments DERMATOPATHOLOGY Routine 04/23/2023 10:2 0 AM 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 SKIN, right abdomen: BASAL CELL CARCINOMA, NODULAR TYPE (C44.519) 4 10:44 AM [facility] DERMATOPATHOLOGY LABORATORY at [address] Clinical History R/O SCC Growing Non-Healing 10:44 AM [facility] DERMATOPATHOLOGY LABORATORY Gross Description Specimen A: Received is one formalin filled container labeled with the patient's name and designated right abdomen. The specimen consists of a shave biopsy measuring 6x6x1 mm. Jar 0. 10:44 AM [facility] DERMATOPATHOLOGY LABORATORY Microscopic Description Specimen A. SKIN, right abdomen: Within the dermis there are aggregates of basaloid cells with a high nuclear to cytoplasmic ratio and peripheral palisading. 10:44 AM [facility] DERMATOPATHOLOGY LABORATORY Disclaimer An external and internal positive and negative controls are appropriate for the histochemical, immunohistochemical and immunofluorescence stain(s) in this case (if any), except where stated explicitly. The performance characteristics of the stain(s) cited in this report were developed and its performance characteristic determined by the Dermatopathology Laboratory at [facility], directed by Dr. Usha Weller. These tests need not be, and therefore are not, approved by the [place] Food and Drug Administration. The tests are used for clinical purposes. Billing Codes Specimen Charges Stain Charges 02050 1 10:44 AM [facility] DERMATOPATHOLOGY LABORATORY Embedded Images 10:44 AM [facility] DERMATOPATHOLOGY LABORATORY Pathology/Cytolo gy TISSUE SPECIMEN FROM SKIN / Unknown 04/23/2023 10:20 AM [employer]ORTS S[employer]TER 04/24/2023 2:01 PM [facility] Anisa Mckeon MD LAB - PATHOLOGY/CYTOLOGY OR DERABLES Final Result DERMATOPATHOLOGY LABORATORY [facility] - Department of Dermatology [address] [phone] documented in this encounter Visit Diagnoses Not on filedocumented in this encounter
== END 2024-12-31 15:34 | disposition home or self-care (01) ==
PROVIDERS: Physician Assistant; Emergency Provider Student in an Organized Health Care Education/Training Program; PCP Internal Medicine
DX: N12 Tubulo-interstitial nephritis, not specified as acute or chronic (principal); D64.9 Anemia, unspecified; J90 Pleural effusion, not elsewhere classified; K44.9 Diaphragmatic hernia without obstruction or gangrene; R91.8 Other nonspecific abnormal finding of lung field; R74.01 Elevation of levels of liver transaminase levels; R79.82 Elevated C-reactive protein (CRP); Z90.49 Acquired absence of other specified parts of digestive tract; Z90.79 Acquired absence of other genital organ(s)
CPT/HCPCS: 36415; 74177; 80053; 80143; 81001; 83605; 83690; 85025; 85610; 85730; 86140; 87040; 87077; 87086; 87186; 96361; 96365; 96375; 99284; A9270; J0696; J2270; J7030; Q9967